=== PATIENT | male | born 1945 | race African-American/Black ===

== ENCOUNTER 2017-12-20 10:35 | Inpatient (IN) | payer MEDICARE, MEDICAID ==
[~2017-12-20] VITALS: Ht 177.8 cm; Wt 204.1 kg
[2017-12-20 10:40] VITALS: BP 159/86
--- NOTE | 2017-12-20 11:36 | Emergency Room Report ---
History of Present Illness General Chief Complaint: General Complaint Source: Patient, PMD Present Illness HPI 72-year-old male with history of hypertension, diabetes, CHF, sent by Dr. Maco Diane from the [facility] [place] for unknown reasons. Patient denies any pain complaints, any shortness of breath, any fever, the only thing he complains of he has been having some loose stools lately. He denies any diarrheas. He denies suicidal, homicidal ideations, denies hallucinations. He himself is not sure why he was sent to the ER. I will try to contact Dr. Diane to try and figure out why the patient is sent here. In the interim I will order basic labs, ekg, cxr. Patient reported to triage that he may be having leg pain, but when asked specifically he reports not having leg pain, he also denies that his legs are more swollen than usual. He was sent for persistent diarrhea according to Dr. Diane. Allergies: Coded Allergies: No Known Allergies (Unverified , 12/20/17) Patient History Past Medical History: see triage record Reviewed Nursing Documentation: PMH: Agreed; PSxH: Agreed Nursing Documentation-PMH Past Medical History: No History, Except For Hx Cardiac Problems: Yes - chf Hx Hypertension: Yes Hx Diabetes: Yes Review of Systems All Other Systems: negative except mentioned in HPI Physical Exam Vital Signs Date Time Temp Pulse Resp B/P (MAP) Pulse Ox O2 Delivery O2 Flow Rate FiO2 12/20/17 10:42 98.0 94 24 180/83 96 Room Air 98.1 Sp02 EP Interpretation: reviewed, normal General Appearance: no apparent distress, alert, non-toxic Head: normocephalic Eyes: bilateral eye normal inspection, bilateral eye PERRL, bilateral eye EOMI ENT: normal ENT inspection, hearing grossly normal, normal pharynx, no angioedema, normal voice, moist mucus membranes Neck: normal inspection, full range of motion, supple, supple/symm/no masses Respiratory: chest non-tender, lungs clear, normal breath sounds, chest symmetrical, palpation of chest normal Cardiovascular #1: normal peripheral pulses, regular rate, rhythm, edema - 1+ bilateral lower extremity edema, no erythema, no warmth, no tenderness Cardiovascular #2: 2+ radial (R), 2+ radial (L) Gastrointestinal: normal inspection, non tender, soft, no mass, no guarding, no rebound, other - Multiple scars, well-healed, overweight Rectal: deferred Genitourinary: normal inspection, no CVA tenderness Musculoskeletal: back normal, gait/station normal, normal range of motion, non- tender, no calf tenderness Neurologic: alert, responsive, physician practice administrator III-XII nml as tested, motor strength/tone normal, sensory intact, speech normal Psychiatric: judgement/insight normal, memory normal, mood/affect normal, no suicidal/homicidal ideation Skin: normal color, no rash, warm/dry, normal turgor Lymphatic: no adenopathy Medical Decision Making Diagnostic Impression: Primary Impression: Diarrhea ER Course stool cultures ordered, patient afebrile with no pain, no recent abx, but will send stool studies. I spoke with Dr. Maco Diane, will admit to [facility] surgery for profuse diarrhea. EKG Diagnostic Results EKG Time: 11:47 EP Interpretation: no st-t segment changes, TWI in R precordium Rate: normal Rhythm: NSR ST Segments: no acute changes Rhythm Strip Diag. Results Rhythm Strip Time: 12:28 EP Interpretation: yes Rate: 85 Rhythm: NSR, no PVC's, no ectopy Chest X-Ray Diagnostic Results Chest X-Ray Diagnostic Results : Chest X-Ray Ordered: Yes # of Views/Limited/Complete: 1 View Indication: Other EP Interpretation: Yes Interpretation: no consolidation, no effusion, no pneumothorax, no acute cardiopulmonary disease, other - abdominal pannus overlying inferior portion of cxr film, but no lung field opacity Impression: No acute disease Electronically Signed by: Cuong Vu MD Last Vital Signs Date Time Temp Pulse Resp B/P (MAP) Pulse Ox O2 Delivery O2 Flow Rate FiO2 12/20/17 10:42 98.0 94 24 180/83 96 Room Air 98.1 Disposition: ADMITTED INPATIENT Referrals: Maco Diane DO (PCP) CUONG VU M.D Dec 20, 2017 11:36
--- NOTE | 2017-12-20 12:55 | Diagnostic Imaging Report ---
Indication: Shortness of breath Technique: One view of the chest Comparison: none Findings: Body habitus limits evaluation. The lungs and pleural spaces are clear. The heart is enlarged. There is surgical hardware in the cervical spine Impression: No definite acute process Borderline cardiomegaly
[2017-12-20 13:15] LABS: EOSINOPHILS % (AUTO) 2.4 % (0.0-3.0); HEMATOCRIT 41.3 % (42.0-52.0); HEMOGLOBIN 12.6 G/DL (14.2-18.0); LYMPHOCYTES % (AUTO) 18.6 % (20.0-45.0); MEAN CORPUSCULAR VOLUME 85 FL (80-99); MONOCYTES % (AUTO) 5.9 % (1.0-10.0); NEUTROPHILS % (AUTO) 72.1 % (45.0-75.0); PLATELET COUNT 198 K/UL (150-450); RED BLOOD COUNT 4.88 M/UL (4.70-6.10); RED CELL DISTRIBUTION WIDTH 13.6 % (11.6-14.8); WHITE BLOOD COUNT 6.6 K/UL (4.8-10.8)
[2017-12-20 13:35] LABS: ANION GAP 9 mmol/L (5-15); BLOOD UREA NITROGEN 10 mg/dL (7-18); CALCIUM 9.1 MG/DL (8.5-10.1); CARBON DIOXIDE 27 MMOL/L (21-32); CHLORIDE 102 MMOL/L (98-107); CREATININE 1.1 MG/DL (0.55-1.30); POTASSIUM 5.2 MMOL/L (3.5-5.1)
[2017-12-20 13:46] LABS: ALANINE AMINOTRANSFERASE 27 U/L (12-78); ALBUMIN 3.4 G/DL (3.4-5.0); ALBUMIN/GLOBULIN RATIO 0.7 (1.0-2.7); ALKALINE PHOSPHATASE 111 U/L (46-116); ASPARTATE AMINO TRANSFERASE 40 U/L (15-37); BILIRUBIN,TOTAL 0.5 MG/DL (0.2-1.0)
[2017-12-20 13:50] LABS: SODIUM 138 MMOL/L (136-145)
[2017-12-20] MEDS ORDERED: UNOBMED (13:58)
[2017-12-20] MEDS ORDERED: Morphine Sulfate 2mg/ml Inj(IV/IM USE ONLY) IVP PRN (14:00)
[2017-12-20] MEDS ORDERED: Mylanta II UD 30ml ORAL PRN (14:00)
[2017-12-20] MEDS ORDERED: LORazepam Inj 2mg/ml 1ml IV PRN (14:00)
[2017-12-20 15:01] VITALS: BP 160/70
--- NOTE | 2017-12-20 15:57 | GI Initial Consult Note ---
History of Present Illness General Date patient seen: Dec 20, 2017 Reason for Hospitalization: General Complaint Referring physician: HILARIO BAJWA Reason for Consultation: DIARRHEA Present Illness HPI 72-year-old male with history of hypertension, diabetes, CHF, sent by Dr. Hilario Bajaw from the [facility] ([facility] for unknown reasons. Patient denies any pain complaints, any shortness of breath, any fever, the only thing he complains of he has been having some loose stools lately. He denies any diarrheas. He denies suicidal, homicidal ideations, denies hallucinations. He himself is not sure why he was sent to the ER. I will try to contact Dr. Bajwa to try and figure out why the patient is sent here. In the interim I will order basic labs, ekg, cxr. Patient reported to triage that he may be having leg pain, but when asked specifically he reports not having leg pain, he also denies that his legs are more swollen than usual. He was sent for persistent diarrhea according to Dr. Bajwa. GI consulted for persistent diarrhea. Pt was seen in ED, morbid obesity awake A &Ox4 NAD with no active s/sx of N/V/D. Reports of diarrhea, however the patient stated he felt constipated and cited his last BM was yesterday and small. Denies any abdominal pain. Abdomen is firm, non distended, non tender. No noted pitting edema BLE. Stated he had a colonoscopy over 10 years ago. Presents today with mild anemia, hyperkalemia and elevated glucose levels. Home Meds Reported Medications Unable to Obtain Medications (UNABLE TO OBTAIN MEDS) 1 Ea Ea 12/20/17 Med list reviewed/reconciled: Yes Allergies: Coded Allergies: No Known Allergies (Unverified , 12/20/17) Patient History History Provided By: Patient, Medical Record PMH Narrative Past Medical History: see triage record Reviewed Nursing Documentation: PMH: Agreed; PSxH: Agreed Nursing Documentation-PMH Past Medical History: No History, Except For Hx Cardiac Problems: Yes - chf Hx Hypertension: Yes Hx Diabetes: Yes Social History: Denies: smoking, alcohol use, drug use, other Review of Systems All Other Systems: negative except mentioned in HPI Physical Exam Vital Signs Date Time Temp Pulse Resp B/P (MAP) Pulse Ox O2 Delivery O2 Flow Rate FiO2 12/20/17 10:40 98.3 81 23 159/86 97 Room Air 98.3 Sp02 EP Interpretation: reviewed, normal Labs Laboratory Tests Test 12/20/17 11:32 White Blood Count 6.6 K/UL (4.8-10.8) Red Blood Count 4.88 M/UL (4.70-6.10) Hemoglobin 12.6 G/DL (14.2-18.0) L Hematocrit 41.3 % (42.0-52.0) L Mean Corpuscular Volume 85 FL (80-99) Mean Corpuscular Hemoglobin 25.9 PG (27.0-31.0) L Mean Corpuscular Hemoglobin Concent 30.6 G/DL (32.0-36.0) L Red Cell Distribution Width 13.6 % (11.6-14.8) Platelet Count 198 K/UL (150-450) Mean Platelet Volume 7.1 FL (6.5-10.1) Neutrophils (%) (Auto) 72.1 % (45.0-75.0) Lymphocytes (%) (Auto) 18.6 % (20.0-45.0) L Monocytes (%) (Auto) 5.9 % (1.0-10.0) Eosinophils (%) (Auto) 2.4 % (0.0-3.0) Basophils (%) (Auto) 1.0 % (0.0-2.0) Sodium Level 138 MMOL/L (136-145) Potassium Level 5.2 MMOL/L (3.5-5.1) H Chloride Level 102 MMOL/L (98-107) Carbon Dioxide Level 27 MMOL/L (21-32) Anion Gap 9 mmol/L (5-15) Blood Urea Nitrogen 10 mg/dL (7-18) Creatinine 1.1 MG/DL (0.55-1.30) Estimat Glomerular Filtration Rate > 60 mL/min (>60) Glucose Level 301 MG/DL (74-106) H Calcium Level 9.1 MG/DL (8.5-10.1) Total Bilirubin 0.5 MG/DL (0.2-1.0) Aspartate Amino Transf (AST/SGOT) 40 U/L (15-37) H Alanine Aminotransferase (ALT/SGPT) 27 U/L (12-78) Alkaline Phosphatase 111 U/L (46-116) Troponin I 0.037 ng/mL (0.000-0.056) Pro-B-Type Natriuretic Peptide 278 pg/mL (0-125) H Total Protein 8.0 G/DL (6.4-8.2) Albumin 3.4 G/DL (3.4-5.0) Globulin 4.6 g/dL Albumin/Globulin Ratio 0.7 (1.0-2.7) L General Appearance: well appearing, no apparent distress, alert, obese Head: normocephalic EENT: PERRL/EOMI, normal ENT inspection Neck: supple Respiratory: normal breath sounds, no respiratory distress Cardiovascular: normal rate Gastrointestinal: normal inspection, non tender, soft, normal bowel sounds, non -distended Rectal: deferred Genitourinary: deferred Musculoskeletal: normal inspection, back normal Neurologic: normal inspection, alert, oriented x3, responsive Psychiatric: normal inspection, judgement/insight normal, memory normal Skin: normal inspection, normal color, no rash, warm/dry, palpation normal, well hydrated Lymphatic: normal inspection, no adenopathy Current Medications Current Medications Medications (Trade) Dose Ordered Sig/Summer Route PRN Reason Start Time Stop Time Status Last Admin Dose Admin Acetaminophen (Tylenol) 650 mg Q4H PRN ORAL fever 12/20/17 14:00 01/19/18 13:59 Al Hydroxide/Mg Hydroxide (Mylanta II) 30 ml Q6H PRN ORAL dyspepsia 12/20/17 14:00 01/19/18 13:59 Dextrose (Dextrose 50%) STAT PRN IV Hypoglycemia 12/20/17 13:45 01/19/18 13:44 Dextrose (Dextrose 50%) 25 ml STAT PRN IV Hypoglycemia 12/20/17 14:00 01/19/18 13:59 Heparin Sodium (Porcine) (Heparin 5000 units/ml) 5,000 units EVERY 12 HOURS SUBQ 12/20/17 21:00 01/19/18 20:59 Insulin Aspart (NovoLOG) BEFORE MEALS AND HS SUBQ 12/20/17 16:30 01/19/18 16:29 Lorazepam (Ativan 2mg/ml 1ml) 0.5 mg Q4H PRN IV For Anxiety 12/20/17 14:00 12/27/17 13:59 Morphine Sulfate (Morphine Sulfate) 1 mg Q4H PRN IVP For Pain 12/20/17 14:00 12/27/17 13:59 Ondansetron HCl (Zofran) 4 mg Q6H PRN IVP Nausea & Vomiting 12/20/17 14:00 01/19/18 13:59 Polyethylene Glycol (Miralax) 17 gm HSPRN PRN ORAL Constipation 12/20/17 21:00 01/19/18 20:59 Zolpidem Tartrate (Ambien) 5 mg HSPRN PRN ORAL Insomnia 12/20/17 21:00 12/27/17 20:59 GI: Plan Problems: (1) Constipation (2) Anemia (3) Electrolyte imbalance (4) Morbidly obese (5) Diarrhea Plan send for stool studies, cdiff >> if no diarrhea by tomorrow, will start bowel regime ADA diet anemia work up OB stool r/o GI bleed monitor H&H, prn transfusions bowel regime ppi fu labs hydralazine prn Discussed with Dr. Vanegas. Thank you for this patient referral, we will follow. The patient was seen and examined at bedside and all new and available data was reviewed in the patients chart. I agree with the above findings, impression and plan. (Patient seen earlier today. Signature stamp does not reflect patient encounter time.). - MD Majo Ponce,[facility] STORE CUSTODIAN Dec 20, 2017 15:57
[2017-12-20] MEDS ORDERED: HydrALAZINE 25mg tab ORAL PRN (16:00)
[2017-12-20] MEDS: NovoLOG Insulin Flexpen SUBQ SCH ×2 (16:52→20:45)
[2017-12-20 20:00] VITALS: BP 127/60
[2017-12-20] MEDS: Heparin 5000 units/ml inj SUBQ SCH (20:45)
[2017-12-20] MEDS ORDERED: Zolpidem 5mg tab ORAL PRN (21:00)
[2017-12-20] MEDS ORDERED: Miralax 17gm pkt ORAL PRN (21:00)
--- NOTE | 2017-12-20 21:30 | History and Physical Report ---
DATE OF ADMISSION: 12/20/2017 CHIEF COMPLAINT: Diarrhea x3 weeks, weakness, and lethargy. BRIEF HISTORY: This is a 72-year-old male, who lives in [facility] complains of diarrhea for three weeks, getting worse, came to the [place] ER, and diagnosed with the above. Currently, calm in the ER being admitted to medical floor. PAST MEDICAL HISTORY: Includes chronic obstructive pulmonary disease, congestive heart failure, hypertension, diabetes, edema, lower extremity weakness, and morbid obesity. PAST SURGERY HISTORY: Abdominal surgery. MEDICATIONS: We will obtain this shortly. ALLERGIES: Denies. SOCIAL HISTORY: No smoking. No alcohol. No intravenous drug abuse. FAMILY HISTORY: Noncontributory. PHYSICAL EXAMINATION: GENERAL: Calm in bed, oriented x3, and in no acute distress. VITAL SIGNS: Temperature is 98 degrees, pulse 94, respirations 24, and blood pressure 180/83. CARDIOVASCULAR: No murmurs. LUNGS: Distant and clear. ABDOMEN: Bowel sounds positive. Nontender. Nondistended. EXTREMITIES: No cyanosis or clubbing. A 1+ edema. NEUROLOGIC: The patient moves all extremities, slightly weak. LABORATORY DATA: Labs, at this time, show hemoglobin 12.6, otherwise CBC is normal. BMP is pending. ASSESSMENT: 1. Diarrhea. 2. Edema. 3. Anemia. 4. Hypertension. 5. Diabetes. 6. Congestive heart failure. 7. Chronic obstructive pulmonary disease. PLAN: 1. O2 and pulmonary treatment as needed. 2. Blood pressure and blood sugar control. 3. Dietary followup. 4. CBC and BMP in the morning. 5. Resume home medications. 6. We will continue to follow this patient. 7. Dr. Vanegas, Dr. Swanson, and Dr. Graves to consult. Maco Diane D.O. DR: BRUCE JOB#: [id number] CC:
--- NOTE | 2017-12-20 22:15 | History and Physical Report ---
DATE OF ADMISSION: 12/20/2017 TIME: 1 p.m. CHIEF COMPLAINT: Diarrhea x3 weeks, weakness, and lethargy. BRIEF HISTORY: This is a 72-year-old male, who lives [facility], complains of diarrhea for three weeks, getting worse, came to the [place] ER, and diagnosed with the above. Currently, calm in the ER being admitted to medical floor. PAST MEDICAL HISTORY: Includes chronic obstructive pulmonary disease, congestive heart failure, hypertension, diabetes, edema, lower extremity weakness, and morbid obesity. PAST SURGERY HISTORY: Abdominal surgery. MEDICATIONS: We will obtain this shortly. ALLERGIES: Denies. SOCIAL HISTORY: No smoking. No alcohol. No intravenous drug abuse. FAMILY HISTORY: Noncontributory. PHYSICAL EXAMINATION: GENERAL: Calm in bed, oriented x3, and in no acute distress. VITAL SIGNS: Temperature is 98 degrees, pulse 94, respirations 24, and blood pressure 180/83. CARDIOVASCULAR: No murmurs. LUNGS: Distant and clear. ABDOMEN: Bowel sounds positive. Nontender. Nondistended. EXTREMITIES: No cyanosis or clubbing. A 1+ edema. NEUROLOGIC: The patient moves all extremities, slightly weak. LABORATORY DATA: Labs, at this time, show hemoglobin 12.6, otherwise CBC is normal. BMP is pending. ASSESSMENT: 1. Diarrhea. 2. Edema. 3. Anemia. 4. Hypertension. 5. Diabetes. 6. Congestive heart failure. 7. Chronic obstructive pulmonary disease. PLAN: 1. O2 and pulmonary treatment as needed. 2. Blood pressure and blood sugar control. 3. Dietary followup. 4. CBC and BMP in the morning. 5. Resume home medications. 6. We will continue to follow this patient. 7. Dr. Vanegas, Dr. Swanson, and Dr. Graves to consult. Maco Diane D.O. DR: BRUCE JOB#: [id number] CC:
[2017-12-21] VITALS: BP 103/61
[2017-12-21 04:00] VITALS: BP 131/78
[2017-12-21] MEDS: NovoLOG Insulin Flexpen SUBQ SCH ×4 (06:17→20:52)
[2017-12-21 06:42] LABS: BASOPHILS % (AUTO) 0.6 % (0.0-2.0); EOSINOPHILS % (AUTO) 3.7 % (0.0-3.0); HEMATOCRIT 34.7 % (42.0-52.0); HEMOGLOBIN 10.7 G/DL (14.2-18.0); LYMPHOCYTES % (AUTO) 24.2 % (20.0-45.0); MEAN CORPUSCULAR VOLUME 85 FL (80-99); MONOCYTES % (AUTO) 8.3 % (1.0-10.0); NEUTROPHILS % (AUTO) 63.1 % (45.0-75.0); PLATELET COUNT 182 K/UL (150-450); RED BLOOD COUNT 4.07 M/UL (4.70-6.10); RED CELL DISTRIBUTION WIDTH 13.9 % (11.6-14.8); WHITE BLOOD COUNT 5.8 K/UL (4.8-10.8)
[2017-12-21 07:01] LABS: % IRON SATURATION 18 % (15-50); IRON 37 ug/dL (50-175); TOTAL IRON BINDING CAPACITY 208 ug/dL (250-450)
[2017-12-21 07:12] LABS: ALANINE AMINOTRANSFERASE 21 U/L (12-78); ALBUMIN 2.9 G/DL (3.4-5.0); ALBUMIN/GLOBULIN RATIO 0.7 (1.0-2.7); ALKALINE PHOSPHATASE 101 U/L (46-116); ANION GAP 9 mmol/L (5-15); ASPARTATE AMINO TRANSFERASE 17 U/L (15-37); BILIRUBIN,TOTAL 0.4 MG/DL (0.2-1.0); BLOOD UREA NITROGEN 12 mg/dL (7-18); CALCIUM 8.9 MG/DL (8.5-10.1); CARBON DIOXIDE 27 MMOL/L (21-32); CHLORIDE 105 MMOL/L (98-107); CHOLESTEROL 106 MG/DL (< 200); CREATININE 1.1 MG/DL (0.55-1.30); FERRITIN 33 NG/ML (8-388); HDL CHOLESTEROL 45 MG/DL (40-60); POTASSIUM 4.2 MMOL/L (3.5-5.1); SODIUM 140 MMOL/L (136-145); TRIGLYCERIDES 83 MG/DL (30-150)
[2017-12-21 08:00] VITALS: BP 148/76
[2017-12-21] MEDS: Heparin 5000 units/ml inj SUBQ SCH ×2 (09:03→20:51)
--- NOTE | 2017-12-21 10:52 | General Progress Note ---
Assessment/Plan Problem List: (1) Diabetes ICD Codes: E11.9 - Type 2 diabetes mellitus without complications SNOMED: 28255700 (2) COPD (chronic obstructive pulmonary disease) ICD Codes: J44.9 - Chronic obstructive pulmonary disease, unspecified SNOMED: 92032383 (3) CHF (congestive heart failure) ICD Codes: I50.9 - Heart failure, unspecified SNOMED: 54014607 (4) HTN (hypertension) ICD Codes: I10 - Essential (primary) hypertension SNOMED: 77045317 (5) Anemia ICD Codes: D64.9 - Anemia, unspecified SNOMED: 383729896 (6) Morbidly obese ICD Codes: E66.01 - Morbid (severe) obesity due to excess calories SNOMED: 015540501 (7) Diarrhea ICD Codes: R19.7 - Diarrhea, unspecified SNOMED: 71992575 Status: unchanged Assessment/Plan ot pt diet o2 pulm tx gi f/u cbc bmp am dc plan Subjective Constitutional: Reports: weakness Allergies: Coded Allergies: No Known Allergies (Unverified , 12/20/17) All Systems: reviewed and negative except above Subjective sl sob in bed Objective Last 24 Hour Vital Signs Date Time Temp Pulse Resp B/P (MAP) Pulse Ox O2 Delivery O2 Flow Rate FiO2 12/21/17 09:00 Room Air 12/21/17 08:00 97.8 96 20 148/76 (100) 98 97.8 12/21/17 04:00 97.3 81 18 131/78 (95) 96 97.3 12/21/17 00:59 96.7 12/21/17 00:29 96.7 12/21/17 00:00 98.3 82 17 103/61 (75) 95 98.3 12/20/17 21:23 Room Air 12/20/17 20:00 96.7 92 17 127/60 (82) 96 96.7 12/20/17 17:27 Room Air 12/20/17 16:26 177/94 12/20/17 15:40 98.8 24 160/70 100 Room Air 98.8 12/20/17 15:01 98.8 24 160/70 100 Room Air 98.8 Intake and Output 12/20/17 12/21/17 19:00 07:00 Intake Total 440 ml Balance 440 ml Intake Oral 440 ml # Voids 1 4 Laboratory Tests 7/26/18 11:32: White Blood Count 6.6, Red Blood Count 4.88, Hemoglobin 12.6L, Hematocrit 41.3L , Mean Corpuscular Volume 85, Mean Corpuscular Hemoglobin 25.9L, Mean Corpuscular Hemoglobin Concent 30.6L, Red Cell Distribution Width 13.6, Platelet Count 198, Mean Platelet Volume 7.1, Neutrophils (%) (Auto) 72.1, Lymphocytes (%) (Auto) 18.6L, Monocytes (%) (Auto) 5.9, Eosinophils (%) (Auto) 2.4, Basophils (%) (Auto) 1.0, Sodium Level 138, Potassium Level 5.2H, Chloride Level 102, Carbon Dioxide Level 27, Anion Gap 9, Blood Urea Nitrogen 10, Creatinine 1.1, Estimat Glomerular Filtration Rate > 60, Glucose Level 301H, Calcium Level 9.1, Total Bilirubin 0.5, Aspartate Amino Transf (AST/SGOT) 40H, Alanine Aminotransferase (ALT/SGPT) 27, Alkaline Phosphatase 111, Troponin I 0.037, Pro-B-Type Natriuretic Peptide 278H, Total Protein 8.0, Albumin 3.4, Globulin 4.6, Albumin/Globulin Ratio 0.7L 12/21/17 05:10: White Blood Count 5.8, Red Blood Count 4.07L, Hemoglobin 10.7L, Hematocrit 34.7L , Mean Corpuscular Volume 85, Mean Corpuscular Hemoglobin 26.3L, Mean Corpuscular Hemoglobin Concent 30.8L, Red Cell Distribution Width 13.9, Platelet Count 182, Mean Platelet Volume 7.3, Neutrophils (%) (Auto) 63.1, Lymphocytes (%) (Auto) 24.2, Monocytes (%) (Auto) 8.3, Eosinophils (%) (Auto) 3.7H, Basophils (%) (Auto) 0.6, Sodium Level 140, Potassium Level 4.2, Chloride Level 105, Carbon Dioxide Level 27, Anion Gap 9, Blood Urea Nitrogen 12, Creatinine 1.1, Estimat Glomerular Filtration Rate > 60, Glucose Level 197#H, Calcium Level 8.9, Total Bilirubin 0.4, Aspartate Amino Transf (AST/SGOT) 17, Alanine Aminotransferase (ALT/SGPT) 21, Alkaline Phosphatase 101, Total Protein 6.9, Albumin 2.9L, Globulin 4.0, Albumin/Globulin Ratio 0.7L, Reticulocyte Count 1.1, Prothrombin Time 10.7, Prothromb Time International Ratio 1.0, Activated Partial Thromboplast Time 26, Iron Level 37L, Total Iron Binding Capacity 208L, Percent Iron Saturation 18, Unsaturated Iron Binding 171, Ferritin 33, Triglycerides Level 83, Cholesterol Level 106, LDL Cholesterol 63, HDL Cholesterol 45, Cholesterol/HDL Ratio 2.4L, Carcinoembryonic Antigen [ Pending], Vitamin B12 Level 127L, Folate 13.3, Thyroid Stimulating Hormone (TSH ) 2.022, Free Thyroxine 1.02 Height (Feet): 5 Height (Inches): 10.00 Weight (Pounds): 450 General Appearance: lethargic EENT: normal ENT inspection Neck: normal alignment Cardiovascular: normal peripheral pulses, normal rate, regular rhythm Respiratory/Chest: chest wall non-tender, decreased breath sounds Abdomen: normal bowel sounds, non tender Extremities: normal inspection Edema: 1+ Arm (L), 1+ Arm (R), 1+ Leg (L), 1+ Leg (R), 1+ Pedal (L), 1+ Pedal ( R), 1+ Generalized Edema: trace edema Neurologic: responsive, motor weakness Skin: normal pigmentation, warm/dry Maco Diane DO Dec 21, 2017 10:52
[2017-12-21 12:00] VITALS: BP 153/75
--- NOTE | 2017-12-21 12:24 | Cardiology Report ---
APPROVED REPORT EKG Measurement Heart [id number] Sinus rhythm with 1st degree AV block Possible Left atrial enlargement Right bundle branch block Septal infarct, age undetermined Abnormal ECG
--- NOTE | 2017-12-21 14:08 | Consultation ---
History of Present Illness General Date patient seen: Dec 21, 2017 Chief Complaint: General Complaint Referring physician: HILARIO BAJWA Reason for Consultation: DEJA Present Illness HPI 72-year-old male with history of hypertension, diabetes, CHF, morbid obesity, DEJA presented to ER with loose stools lately. He is also having leg pain. He is admitted to medical floor for further management. Allergies: Coded Allergies: No Known Allergies (Unverified , 12/20/17) Medication History Miscellaneous Medications Unable to Obtain Medications (Unable To Obtain Meds), (Reported) Patient History Healthcare decision maker Resuscitation status Full Code Advanced Directive on File No Past Medical/Surgical History Past Medical/Surgical History: (1) HTN (hypertension) (2) CHF (congestive heart failure) (3) Diabetes (4) COPD (chronic obstructive pulmonary disease) Review of Systems All Other Systems: negative except mentioned in HPI Physical Exam General Appearance: morbidly obese Lines, tubes and drains: peripheral HEENT: normocephalic, atraumatic Neck: non-tender, supple Respiratory/Chest: chest wall non-tender, normal breath sounds Cardiovascular/Chest: normal peripheral pulses Abdomen: normal bowel sounds, no organomegaly Genitourinary/Rectal: normal rectal exam Last 24 Hour Vital Signs Date Time Temp Pulse Resp B/P (MAP) Pulse Ox O2 Delivery O2 Flow Rate FiO2 12/21/17 12:00 98.2 82 20 153/75 (101) 97 98.2 12/21/17 09:00 Room Air 12/21/17 08:00 97.8 96 20 148/76 (100) 98 97.8 12/21/17 04:00 97.3 81 18 131/78 (95) 96 97.3 12/21/17 00:59 96.7 12/21/17 00:29 96.7 12/21/17 00:00 98.3 82 17 103/61 (75) 95 98.3 12/20/17 21:23 Room Air 12/20/17 20:00 96.7 92 17 127/60 (82) 96 96.7 12/20/17 17:27 Room Air 12/20/17 16:26 177/94 12/20/17 15:40 98.8 24 160/70 100 Room Air 98.8 12/20/17 15:01 98.8 24 160/70 100 Room Air 98.8 Intake and Output 7/26/18 7/27/18 19:00 07:00 Intake Total 440 ml Balance 440 ml Intake Oral 440 ml # Voids 1 4 Laboratory Tests Test 12/21/17 05:10 White Blood Count 5.8 K/UL (4.8-10.8) Red Blood Count 4.07 M/UL (4.70-6.10) L Hemoglobin 10.7 G/DL (14.2-18.0) L Hematocrit 34.7 % (42.0-52.0) L Mean Corpuscular Volume 85 FL (80-99) Mean Corpuscular Hemoglobin 26.3 PG (27.0-31.0) L Mean Corpuscular Hemoglobin Concent 30.8 G/DL (32.0-36.0) L Red Cell Distribution Width 13.9 % (11.6-14.8) Platelet Count 182 K/UL (150-450) Mean Platelet Volume 7.3 FL (6.5-10.1) Neutrophils (%) (Auto) 63.1 % (45.0-75.0) Lymphocytes (%) (Auto) 24.2 % (20.0-45.0) Monocytes (%) (Auto) 8.3 % (1.0-10.0) Eosinophils (%) (Auto) 3.7 % (0.0-3.0) H Basophils (%) (Auto) 0.6 % (0.0-2.0) Reticulocyte Count 1.1 % (0.0-2.0) Prothrombin Time 10.7 SEC (9.30-11.50) Prothromb Time International Ratio 1.0 (0.9-1.1) Activated Partial Thromboplast Time 26 SEC (23-33) Sodium Level 140 MMOL/L (136-145) Potassium Level 4.2 MMOL/L (3.5-5.1) Chloride Level 105 MMOL/L (98-107) Carbon Dioxide Level 27 MMOL/L (21-32) Anion Gap 9 mmol/L (5-15) Blood Urea Nitrogen 12 mg/dL (7-18) Creatinine 1.1 MG/DL (0.55-1.30) Estimat Glomerular Filtration Rate > 60 mL/min (>60) Glucose Level 197 MG/DL (74-106) #H Calcium Level 8.9 MG/DL (8.5-10.1) Iron Level 37 ug/dL (50-175) L Total Iron Binding Capacity 208 ug/dL (250-450) L Percent Iron Saturation 18 % (15-50) Unsaturated Iron Binding 171 ug/dL (112-346) Ferritin 33 NG/ML (8-388) Total Bilirubin 0.4 MG/DL (0.2-1.0) Aspartate Amino Transf (AST/SGOT) 17 U/L (15-37) Alanine Aminotransferase (ALT/SGPT) 21 U/L (12-78) Alkaline Phosphatase 101 U/L (46-116) Total Protein 6.9 G/DL (6.4-8.2) Albumin 2.9 G/DL (3.4-5.0) L Globulin 4.0 g/dL Albumin/Globulin Ratio 0.7 (1.0-2.7) L Triglycerides Level 83 MG/DL (30-150) Cholesterol Level 106 MG/DL (< 200) LDL Cholesterol 63 mg/dL (<100) HDL Cholesterol 45 MG/DL (40-60) Cholesterol/HDL Ratio 2.4 (3.3-4.4) L Carcinoembryonic Antigen Pending Vitamin B12 Level 127 PG/ML (193-986) L Folate 13.3 NG/ML (8.6-58.9) Thyroid Stimulating Hormone (TSH) 2.022 uiU/mL (0.358-3.740) Free Thyroxine 1.02 NG/DL (0.76-1.46) Microbiology Date/Time Source Procedure Growth Status 12/20/17 15:30 Rectum - Preliminary Resulted Height (Feet): 5 Height (Inches): 10.00 Weight (Pounds): 450 Medications Current Medications Medications (Trade) Dose Ordered Sig/Summer Route PRN Reason Start Time Stop Time Status Last Admin Dose Admin Acetaminophen (Tylenol) 650 mg Q4H PRN ORAL fever 12/20/17 14:00 01/19/18 13:59 Al Hydroxide/Mg Hydroxide (Mylanta II) 30 ml Q6H PRN ORAL dyspepsia 12/20/17 14:00 01/19/18 13:59 Clonidine HCl (Catapres Tab) 0.1 mg Q6H PRN ORAL For High Blood Pressure 12/20/17 16:00 01/19/18 15:59 7/26/18 16:26 Dextrose (Dextrose 50%) STAT PRN IV Hypoglycemia 12/20/17 13:45 01/19/18 13:44 Dextrose (Dextrose 50%) 25 ml STAT PRN IV Hypoglycemia 12/20/17 14:00 01/19/18 13:59 Heparin Sodium (Porcine) (Heparin 5000 units/ml) 5,000 units EVERY 12 HOURS SUBQ 12/20/17 21:00 01/19/18 20:59 12/21/17 09:03 Insulin Aspart (NovoLOG) BEFORE MEALS AND HS SUBQ 12/20/17 16:30 01/19/18 16:29 12/21/17 11:13 Lorazepam (Ativan 2mg/ml 1ml) 0.5 mg Q4H PRN IV For Anxiety 12/20/17 14:00 12/27/17 13:59 Morphine Sulfate (Morphine Sulfate) 1 mg Q4H PRN IVP For Pain 12/20/17 14:00 12/27/17 13:59 12/21/17 00:29 Ondansetron HCl (Zofran) 4 mg Q6H PRN IVP Nausea & Vomiting 12/20/17 14:00 01/19/18 13:59 Polyethylene Glycol (Miralax) 17 gm HSPRN PRN ORAL Constipation 12/20/17 21:00 01/19/18 20:59 Zolpidem Tartrate (Ambien) 5 mg HSPRN PRN ORAL Insomnia 12/20/17 21:00 12/27/17 20:59 Assessment/Plan Problem List: (1) COPD (chronic obstructive pulmonary disease) ICD Codes: J44.9 - Chronic obstructive pulmonary disease, unspecified SNOMED: 80852704 (2) Diarrhea ICD Codes: R19.7 - Diarrhea, unspecified SNOMED: 45227051 (3) HTN (hypertension) ICD Codes: I10 - Essential (primary) hypertension SNOMED: 13104974 (4) Diabetes ICD Codes: E11.9 - Type 2 diabetes mellitus without complications SNOMED: 24502959 (5) Morbidly obese ICD Codes: E66.01 - Morbid (severe) obesity due to excess calories SNOMED: 066456684 Assessment/Plan respiratory treatment check electrolytes titrate fio2 to sat of 92 GI evaluation Stool studies dvt prophylaxis. Jonatan Swanson MD Dec 21, 2017 14:08
--- NOTE | 2017-12-21 15:38 | GI Progress Note ---
Assessment/Plan Problems: (1) Morbidly obese ICD Codes: E66.01 - Morbid (severe) obesity due to excess calories SNOMED: 400697392 (2) Electrolyte imbalance ICD Codes: E87.8 - Other disorders of electrolyte and fluid balance, not elsewhere classified SNOMED: 903078960 (3) Diarrhea ICD Codes: R19.7 - Diarrhea, unspecified SNOMED: 02296712 (4) Anemia ICD Codes: D64.9 - Anemia, unspecified SNOMED: 332356366 (5) Constipation ICD Codes: K59.00 - Constipation, unspecified SNOMED: 31457023 Status: stable Status Narrative Discussed with Dr. Vanegas. Assessment/Plan had formed stool >> start bowel regime OB stool pending ADA diet anemia work up monitor H&H, prn transfusions bowel regime ppi fu labs, kub outpatient GI procedures The patient was seen and examined at bedside and all new and available data was reviewed in the patients chart. I agree with the above findings, impression and plan. (Patient seen earlier today. Signature stamp does not reflect patient encounter time.). - Pierce Vanegas MD Subjective Subjective had formed BM today Objective Last 24 Hour Vital Signs Date Time Temp Pulse Resp B/P (MAP) Pulse Ox O2 Delivery O2 Flow Rate FiO2 12/21/17 12:00 98.2 82 20 153/75 (101) 97 98.2 12/21/17 09:00 Room Air 12/21/17 08:00 97.8 96 20 148/76 (100) 98 97.8 12/21/17 04:00 97.3 81 18 131/78 (95) 96 97.3 12/21/17 00:59 96.7 12/21/17 00:29 96.7 12/21/17 00:00 98.3 82 17 103/61 (75) 95 98.3 12/20/17 21:23 Room Air 12/20/17 20:00 96.7 92 17 127/60 (82) 96 96.7 12/20/17 17:27 Room Air 12/20/17 16:26 177/94 12/20/17 15:40 98.8 24 160/70 100 Room Air 98.8 Intake and Output 12/20/17 12/21/17 19:00 07:00 Intake Total 440 ml Balance 440 ml Intake Oral 440 ml # Voids 1 4 Laboratory Tests Test 12/21/17 05:10 12/21/17 14:30 White Blood Count 5.8 K/UL (4.8-10.8) Red Blood Count 4.07 M/UL (4.70-6.10) L Hemoglobin 10.7 G/DL (14.2-18.0) L Hematocrit 34.7 % (42.0-52.0) L Mean Corpuscular Volume 85 FL (80-99) Mean Corpuscular Hemoglobin 26.3 PG (27.0-31.0) L Mean Corpuscular Hemoglobin Concent 30.8 G/DL (32.0-36.0) L Red Cell Distribution Width 13.9 % (11.6-14.8) Platelet Count 182 K/UL (150-450) Mean Platelet Volume 7.3 FL (6.5-10.1) Neutrophils (%) (Auto) 63.1 % (45.0-75.0) Lymphocytes (%) (Auto) 24.2 % (20.0-45.0) Monocytes (%) (Auto) 8.3 % (1.0-10.0) Eosinophils (%) (Auto) 3.7 % (0.0-3.0) H Basophils (%) (Auto) 0.6 % (0.0-2.0) Reticulocyte Count 1.1 % (0.0-2.0) Prothrombin Time 10.7 SEC (9.30-11.50) Prothromb Time International Ratio 1.0 (0.9-1.1) Activated Partial Thromboplast Time 26 SEC (23-33) Sodium Level 140 MMOL/L (136-145) Potassium Level 4.2 MMOL/L (3.5-5.1) Chloride Level 105 MMOL/L (98-107) Carbon Dioxide Level 27 MMOL/L (21-32) Anion Gap 9 mmol/L (5-15) Blood Urea Nitrogen 12 mg/dL (7-18) Creatinine 1.1 MG/DL (0.55-1.30) Estimat Glomerular Filtration Rate > 60 mL/min (>60) Glucose Level 197 MG/DL (74-106) #H Calcium Level 8.9 MG/DL (8.5-10.1) Iron Level 37 ug/dL (50-175) L Total Iron Binding Capacity 208 ug/dL (250-450) L Percent Iron Saturation 18 % (15-50) Unsaturated Iron Binding 171 ug/dL (112-346) Ferritin 33 NG/ML (8-388) Total Bilirubin 0.4 MG/DL (0.2-1.0) Aspartate Amino Transf (AST/SGOT) 17 U/L (15-37) Alanine Aminotransferase (ALT/SGPT) 21 U/L (12-78) Alkaline Phosphatase 101 U/L (46-116) Total Protein 6.9 G/DL (6.4-8.2) Albumin 2.9 G/DL (3.4-5.0) L Globulin 4.0 g/dL Albumin/Globulin Ratio 0.7 (1.0-2.7) L Triglycerides Level 83 MG/DL (30-150) Cholesterol Level 106 MG/DL (< 200) LDL Cholesterol 63 mg/dL (<100) HDL Cholesterol 45 MG/DL (40-60) Cholesterol/HDL Ratio 2.4 (3.3-4.4) L Carcinoembryonic Antigen Pending Vitamin B12 Level 127 PG/ML (193-986) L Folate 13.3 NG/ML (8.6-58.9) Thyroid Stimulating Hormone (TSH) 2.022 uiU/mL (0.358-3.740) Free Thyroxine 1.02 NG/DL (0.76-1.46) Stool Occult Blood Pending Microbiology Date/Time Source Procedure Growth Status 12/21/17 14:30 Stool Received Height (Feet): 5 Height (Inches): 10.00 Weight (Pounds): 450 General Appearance: WD/WN, no apparent distress, alert, morbidly obese Cardiovascular: normal rate Respiratory/Chest: normal breath sounds, no respiratory distress Abdominal Exam: normal bowel sounds, non tender, soft Extremities: normal range of motion, non-tender King Kasper NP Dec 21, 2017 15:38
[2017-12-21 16:00] VITALS: BP 137/64
[2017-12-21 20:06] VITALS: BP 152/90
--- NOTE | 2017-12-21 20:29 | Consultation ---
History of Present Illness General Date patient seen: Dec 21, 2017 Chief Complaint: General Complaint Referring physician: HILARIO BAJWA Reason for Consultation: DEJA Present Illness HPI Coverage for [place] 72-year-old male with history of chronic obstructive pulmonary disease, congestive heart failure, hypertension, diabetes, edema, lower extremity weakness, and morbid obesity presents with diarrhea. CXR showed cardiomegaly. BP elevated 150s, patient unable to recall medications. NO fevers, no chest pain , no shortness of breath. labs show low iron and b12 levels, low protein. BNP not elevated. Allergies: Coded Allergies: No Known Allergies (Unverified , 12/20/17) Medication History Miscellaneous Medications Unable to Obtain Medications (Unable To Obtain Meds), (Reported) Patient History Healthcare decision maker Resuscitation status Full Code Advanced Directive on File No Review of Systems Constitutional: Reports: no symptoms Eye: Reports: no symptoms ENT: Reports: no symptoms Respiratory: Reports: no symptoms Cardiovascular: Reports: no symptoms Gastrointestinal: Reports: diarrhea Genitourinary: Reports: no symptoms Musculoskeletal: Reports: no symptoms Skin: Reports: no symptoms Psychiatric: Reports: no symptoms Neurological: Reports: no symptoms Endocrine: Reports: no symptoms Hematologic/Lymphatic: Reports: no symptoms Physical Exam General Appearance: no apparent distress Lines, tubes and drains: peripheral HEENT: normocephalic, atraumatic Neck: non-tender, normal alignment Respiratory/Chest: chest wall non-tender Cardiovascular/Chest: normal peripheral pulses Abdomen: normal bowel sounds, non tender Extremities: normal range of motion, non-tender Skin Exam: normal pigmentation Neurologic: inspector subassembly II-XII grossly normal, no motor/sensory deficits Last 24 Hour Vital Signs Date Time Temp Pulse Resp B/P (MAP) Pulse Ox O2 Delivery O2 Flow Rate FiO2 12/21/17 20:12 Room Air 12/21/17 20:06 98.5 97 18 152/90 (110) 92 98.5 12/21/17 16:00 97.6 84 20 137/64 (88) 98 97.6 12/21/17 12:00 98.2 82 20 153/75 (101) 97 98.2 12/21/17 09:00 Room Air 12/21/17 08:00 97.8 96 20 148/76 (100) 98 97.8 12/21/17 04:00 97.3 81 18 131/78 (95) 96 97.3 12/21/17 00:59 96.7 12/21/17 00:29 96.7 12/21/17 00:00 98.3 82 17 103/61 (75) 95 98.3 12/20/17 21:23 Room Air Intake and Output 12/20/17 12/21/17 19:00 07:00 Intake Total 440 ml Balance 440 ml Intake Oral 440 ml # Voids 1 4 Laboratory Tests Test 12/21/17 05:10 12/21/17 14:30 White Blood Count 5.8 K/UL (4.8-10.8) Red Blood Count 4.07 M/UL (4.70-6.10) L Hemoglobin 10.7 G/DL (14.2-18.0) L Hematocrit 34.7 % (42.0-52.0) L Mean Corpuscular Volume 85 FL (80-99) Mean Corpuscular Hemoglobin 26.3 PG (27.0-31.0) L Mean Corpuscular Hemoglobin Concent 30.8 G/DL (32.0-36.0) L Red Cell Distribution Width 13.9 % (11.6-14.8) Platelet Count 182 K/UL (150-450) Mean Platelet Volume 7.3 FL (6.5-10.1) Neutrophils (%) (Auto) 63.1 % (45.0-75.0) Lymphocytes (%) (Auto) 24.2 % (20.0-45.0) Monocytes (%) (Auto) 8.3 % (1.0-10.0) Eosinophils (%) (Auto) 3.7 % (0.0-3.0) H Basophils (%) (Auto) 0.6 % (0.0-2.0) Reticulocyte Count 1.1 % (0.0-2.0) Prothrombin Time 10.7 SEC (9.30-11.50) Prothromb Time International Ratio 1.0 (0.9-1.1) Activated Partial Thromboplast Time 26 SEC (23-33) Sodium Level 140 MMOL/L (136-145) Potassium Level 4.2 MMOL/L (3.5-5.1) Chloride Level 105 MMOL/L (98-107) Carbon Dioxide Level 27 MMOL/L (21-32) Anion Gap 9 mmol/L (5-15) Blood Urea Nitrogen 12 mg/dL (7-18) Creatinine 1.1 MG/DL (0.55-1.30) Estimat Glomerular Filtration Rate > 60 mL/min (>60) Glucose Level 197 MG/DL (74-106) #H Calcium Level 8.9 MG/DL (8.5-10.1) Iron Level 37 ug/dL (50-175) L Total Iron Binding Capacity 208 ug/dL (250-450) L Percent Iron Saturation 18 % (15-50) Unsaturated Iron Binding 171 ug/dL (112-346) Ferritin 33 NG/ML (8-388) Total Bilirubin 0.4 MG/DL (0.2-1.0) Aspartate Amino Transf (AST/SGOT) 17 U/L (15-37) Alanine Aminotransferase (ALT/SGPT) 21 U/L (12-78) Alkaline Phosphatase 101 U/L (46-116) Total Protein 6.9 G/DL (6.4-8.2) Albumin 2.9 G/DL (3.4-5.0) L Globulin 4.0 g/dL Albumin/Globulin Ratio 0.7 (1.0-2.7) L Triglycerides Level 83 MG/DL (30-150) Cholesterol Level 106 MG/DL (< 200) LDL Cholesterol 63 mg/dL (<100) HDL Cholesterol 45 MG/DL (40-60) Cholesterol/HDL Ratio 2.4 (3.3-4.4) L Carcinoembryonic Antigen Pending Vitamin B12 Level 127 PG/ML (193-986) L Folate 13.3 NG/ML (8.6-58.9) Thyroid Stimulating Hormone (TSH) 2.022 uiU/mL (0.358-3.740) Free Thyroxine 1.02 NG/DL (0.76-1.46) Stool Occult Blood Pending Microbiology Date/Time Source Procedure Growth Status 12/21/17 14:30 Stool Received Height (Feet): 5 Height (Inches): 10.00 Weight (Pounds): 450 Medications Current Medications Medications (Trade) Dose Ordered Sig/Summer Route PRN Reason Start Time Stop Time Status Last Admin Dose Admin Acetaminophen (Tylenol) 650 mg Q4H PRN ORAL fever 12/20/17 14:00 01/19/18 13:59 Al Hydroxide/Mg Hydroxide (Mylanta II) 30 ml Q6H PRN ORAL dyspepsia 12/20/17 14:00 01/19/18 13:59 Clonidine HCl (Catapres Tab) 0.1 mg Q6H PRN ORAL For High Blood Pressure 12/20/17 16:00 01/19/18 15:59 12/20/17 16:26 Cyanocobalamin (Vitamin B12) 1,000 mcg ONCE IM 12/21/17 22:00 12/21/17 23:00 Dextrose (Dextrose 50%) STAT PRN IV Hypoglycemia 12/20/17 13:45 01/19/18 13:44 Dextrose (Dextrose 50%) 25 ml STAT PRN IV Hypoglycemia 12/20/17 14:00 01/19/18 13:59 Heparin Sodium (Porcine) (Heparin 5000 units/ml) 5,000 units EVERY 12 HOURS SUBQ 12/20/17 21:00 01/19/18 20:59 12/21/17 09:03 Insulin Aspart (NovoLOG) BEFORE MEALS AND HS SUBQ 12/20/17 16:30 01/19/18 16:29 12/21/17 16:39 Lorazepam (Ativan 2mg/ml 1ml) 0.5 mg Q4H PRN IV For Anxiety 12/20/17 14:00 12/27/17 13:59 Morphine Sulfate (Morphine Sulfate) 1 mg Q4H PRN IVP For Pain 12/20/17 14:00 12/27/17 13:59 12/21/17 00:29 Ondansetron HCl (Zofran) 4 mg Q6H PRN IVP Nausea & Vomiting 12/20/17 14:00 01/19/18 13:59 Polyethylene Glycol (Miralax) 17 gm HSPRN PRN ORAL Constipation 12/20/17 21:00 01/19/18 20:59 Zolpidem Tartrate (Ambien) 5 mg HSPRN PRN ORAL Insomnia 12/20/17 21:00 12/27/17 20:59 Assessment/Plan Status: stable Assessment/Plan Assessment (1) Morbidly obese (2) Electrolyte imbalance (3) Diarrhea (4) Anemia (5) Constipation (6) CHF (7) Obesity (8) Diabetes (9) COPD (10) Hypertension Plan Iron supplementation B12 supplementation Weight loss Ambulate Statin Aspirin Echocardiogram to evaluate LV function stool studies Physical therapy BP control - lisinopril 40 mg daily Christiano Gtz M.D. Dec 21, 2017 20:29
[2017-12-21] MEDS: Atorvastatin 20mg tab ORAL SCH (20:50)
[2017-12-21] MEDS ORDERED: Vitamin B12 1000mcg/ml Inj IM SCH (22:00)
[2017-12-22] VITALS: BP 149/78
[2017-12-22 04:00] VITALS: BP 132/54
[2017-12-22] MEDS: NovoLOG Insulin Flexpen SUBQ SCH ×4 (06:18→20:33)
[2017-12-22 06:34] LABS: BASOPHILS % (AUTO) 0.8 % (0.0-2.0); EOSINOPHILS % (AUTO) 3.9 % (0.0-3.0); HEMATOCRIT 34.9 % (42.0-52.0); HEMOGLOBIN 11.5 G/DL (14.2-18.0); LYMPHOCYTES % (AUTO) 25.5 % (20.0-45.0); MEAN CORPUSCULAR VOLUME 85 FL (80-99); MONOCYTES % (AUTO) 8.4 % (1.0-10.0); NEUTROPHILS % (AUTO) 61.4 % (45.0-75.0); PLATELET COUNT 179 K/UL (150-450); RED BLOOD COUNT 4.12 M/UL (4.70-6.10); RED CELL DISTRIBUTION WIDTH 13.9 % (11.6-14.8); WHITE BLOOD COUNT 5.2 K/UL (4.8-10.8)
[2017-12-22 06:53] LABS: ANION GAP 9 mmol/L (5-15); BLOOD UREA NITROGEN 13 mg/dL (7-18); CALCIUM 8.9 MG/DL (8.5-10.1); CARBON DIOXIDE 27 MMOL/L (21-32); CHLORIDE 103 MMOL/L (98-107); CREATININE 1.1 MG/DL (0.55-1.30); POTASSIUM 4.2 MMOL/L (3.5-5.1); SODIUM 138 MMOL/L (136-145)
--- NOTE | 2017-12-22 07:06 | Pulmonology Progress Note ---
Assessment/Plan Assessment/Plan ASSESSMENT diarrhea possible gastroenteritis COPD CHF hypertension diabetes out of control morbid obesity anemia of chronic disease B12 anemia urinary incontinence PLAN OF CARE Med Surg floor stool studies stool C dif negative afebrile, no leuk, poss gastroenteritis GI follows O2 HHN prn CXR no acute C/P pathology anemia workup c/w anemia of chronic disease and B12 deficiency s/p B12 1 and then monthly stool OB negative, and CEA WNL PPI monitor H&H with goal to keep Hgb above 7 , stable BP management with ALTAF and CCB BS management with SSI , add Levemir, check HgA1c get UA and culture possible UTI? ID consult DVT prophylaxis pain management supportive [facility] meds resumed case discussed and evaluated by supervising physician Subjective Allergies: Coded Allergies: No Known Allergies (Unverified , 12/20/17) Subjective afebrile, no leukocytosis diarrhea improving stool C dif negative BS not controlled reported urinary incontinence over night ( new for him) no CP no SOB Objective Last 24 Hour Vital Signs Date Time Temp Pulse Resp B/P (MAP) Pulse Ox O2 Delivery O2 Flow Rate FiO2 12/22/17 04:00 98.0 78 18 132/54 (80) 94 98.0 12/22/17 00:28 98.5 12/22/17 00:00 98.2 84 17 149/78 (101) 98 98.2 12/21/17 23:29 98.5 12/21/17 20:12 Room Air 12/21/17 20:06 98.5 97 18 152/90 (110) 92 98.5 12/21/17 16:00 97.6 84 20 137/64 (88) 98 97.6 12/21/17 12:00 98.2 82 20 153/75 (101) 97 98.2 12/21/17 09:00 Room Air 12/21/17 08:00 97.8 96 20 148/76 (100) 98 97.8 Intake and Output 12/21/17 12/22/17 19:00 07:00 Intake Total 960 ml Output Total 400 ml Balance 560 ml Intake Oral 960 ml Output Urine Total 400 ml # Voids 4 # Bowel Movements 1 General Appearance: no acute distress, other - A/A/O x3 morbidly obese male HEENT: normocephalic, atraumatic, anicteric, mucous membranes moist, PERRL Respiratory/Chest: lungs clear, normal breath sounds, no respiratory distress Cardiovascular: normal peripheral pulses, normal rate, no JVD Abdomen: normal bowel sounds, soft, non tender - obese Extremities: pedal pulses normal Neurologic/Psychiatric: alert, oriented x 3, responsive Musculoskeletal: normal muscle bulk Microbiology Date/Time Source Procedure Growth Status 12/20/17 15:30 Nasal Nares MRSA Culture - Final Staphylococcus Aureus - Mrsa Complete 12/21/17 14:30 Stool Clostridium difficile Toxin Assay - Final Complete 12/20/17 15:30 Rectum - Preliminary Resulted Laboratory Tests 12/21/17 14:30: Stool Occult Blood Neg 12/22/17 04:50: White Blood Count 5.2, Red Blood Count 4.12L, Hemoglobin 11.5L, Hematocrit 34.9L , Mean Corpuscular Volume 85, Mean Corpuscular Hemoglobin 28.0, Mean Corpuscular Hemoglobin Concent 33.0, Red Cell Distribution Width 13.9, Platelet Count 179, Mean Platelet Volume 7.1, Neutrophils (%) (Auto) 61.4, Lymphocytes (% ) (Auto) 25.5, Monocytes (%) (Auto) 8.4, Eosinophils (%) (Auto) 3.9H, Basophils (%) (Auto) 0.8, Sodium Level 138, Potassium Level 4.2, Chloride Level 103, Carbon Dioxide Level 27, Anion Gap 9, Blood Urea Nitrogen 13, Creatinine 1.1, Estimat Glomerular Filtration Rate > 60, Glucose Level 218H, Calcium Level 8.9 Current Medications Medications (Trade) Dose Ordered Sig/Summer Route PRN Reason Start Time Stop Time Status Last Admin Dose Admin Acetaminophen (Tylenol) 650 mg Q4H PRN ORAL fever 12/20/17 14:00 01/19/18 13:59 12/21/17 23:29 Al Hydroxide/Mg Hydroxide (Mylanta II) 30 ml Q6H PRN ORAL dyspepsia 12/20/17 14:00 01/19/18 13:59 Aspirin (ASA) 81 mg DAILY NG 12/22/17 09:00 01/21/18 08:59 Atorvastatin Calcium (Lipitor) 20 mg BEDTIME ORAL 12/21/17 21:00 01/20/18 20:59 12/21/17 20:50 Clonidine HCl (Catapres Tab) 0.1 mg Q6H PRN ORAL For High Blood Pressure 12/20/17 16:00 01/19/18 15:59 12/20/17 16:26 Dextrose (Dextrose 50%) STAT PRN IV Hypoglycemia 12/20/17 13:45 01/19/18 13:44 Dextrose (Dextrose 50%) 25 ml STAT PRN IV Hypoglycemia 12/20/17 14:00 01/19/18 13:59 Heparin Sodium (Porcine) (Heparin 5000 units/ml) 5,000 units EVERY 12 HOURS SUBQ 12/20/17 21:00 01/19/18 20:59 12/21/17 20:51 Insulin Aspart (NovoLOG) BEFORE MEALS AND HS SUBQ 12/20/17 16:30 01/19/18 16:29 12/22/17 06:18 Lisinopril (Prinivil) 40 mg DAILY ORAL 12/22/17 09:00 01/21/18 08:59 Lorazepam (Ativan 2mg/ml 1ml) 0.5 mg Q4H PRN IV For Anxiety 12/20/17 14:00 12/27/17 13:59 Morphine Sulfate (Morphine Sulfate) 1 mg Q4H PRN IVP For Pain 12/20/17 14:00 12/27/17 13:59 12/21/17 00:29 Ondansetron HCl (Zofran) 4 mg Q6H PRN IVP Nausea & Vomiting 12/20/17 14:00 01/19/18 13:59 Polyethylene Glycol (Miralax) 17 gm HSPRN PRN ORAL Constipation 12/20/17 21:00 01/19/18 20:59 Zolpidem Tartrate (Ambien) 5 mg HSPRN PRN ORAL Insomnia 12/20/17 21:00 12/27/17 20:59 Melinda Crespo PATIENT CARE COORDINATOR Dec 22, 2017 07:06
[2017-12-22 08:00] VITALS: BP 175/85
[2017-12-22] MEDS: Lisinopril 20mg tab ORAL SCH (08:44)
[2017-12-22] MEDS: Aspirin Baby 81mg NG SCH (08:44)
[2017-12-22] MEDS: Heparin 5000 units/ml inj SUBQ SCH ×2 (08:49→20:32)
--- NOTE | 2017-12-22 10:53 | Cardiology Progress Note ---
Assessment/Plan Status: stable Assessment/Plan Assessment (1) Morbidly obese (2) Electrolyte imbalance (3) Diarrhea (4) Anemia (5) Constipation (6) CHF (7) Obesity (8) Diabetes (9) COPD (10) Hypertension Plan Iron supplementation B12 supplementation Weight loss Ambulate Statin Aspirin Echocardiogram to evaluate LV function stool studies Physical therapy BP control - lisinopril 40 mg daily, add 10 mg norvasc today Subjective Cardiovascular: Reports: no symptoms Respiratory: Reports: no symptoms Gastrointestinal/Abdominal: Reports: no symptoms Genitourinary: Reports: no symptoms Subjective No acute events, MRSA nares positive. NO complaints. Vitals stable, BP high, patient comfortable Objective Last 24 Hour Vital Signs Date Time Temp Pulse Resp B/P (MAP) Pulse Ox O2 Delivery O2 Flow Rate FiO2 12/22/17 08:44 175/85 12/22/17 08:15 Room Air 12/22/17 08:00 97.7 20 175/85 (115) 100 97.7 12/22/17 04:00 98.0 78 18 132/54 (80) 94 98.0 12/22/17 00:28 98.5 12/22/17 00:00 98.2 84 17 149/78 (101) 98 98.2 12/21/17 23:29 98.5 12/21/17 20:12 Room Air 12/21/17 20:06 98.5 97 18 152/90 (110) 92 98.5 12/21/17 16:00 97.6 84 20 137/64 (88) 98 97.6 12/21/17 12:00 98.2 82 20 153/75 (101) 97 98.2 General Appearance: WD/WN, no apparent distress, alert EENT: PERRL/EOMI, normal ENT inspection Neck: non-tender, normal alignment, supple Rhythm: NSR Cardiovascular: normal peripheral pulses, normal rate, regularly irregular Respiratory/Chest: chest wall non-tender, lungs clear Abdomen: normal bowel sounds, non tender Extremities: normal range of motion, non-tender Neurologic: lingo cleaner II-XII grossly normal Intake and Output 12/21/17 12/22/17 19:00 07:00 Intake Total 960 ml Output Total 400 ml Balance 560 ml Intake Oral 960 ml Output Urine Total 400 ml # Voids 4 # Bowel Movements 1 Laboratory Tests Test 12/21/17 14:30 12/22/17 04:50 Stool Occult Blood Neg (NEGATIVE) White Blood Count 5.2 K/UL (4.8-10.8) Red Blood Count 4.12 M/UL (4.70-6.10) L Hemoglobin 11.5 G/DL (14.2-18.0) L Hematocrit 34.9 % (42.0-52.0) L Mean Corpuscular Volume 85 FL (80-99) Mean Corpuscular Hemoglobin 28.0 PG (27.0-31.0) Mean Corpuscular Hemoglobin Concent 33.0 G/DL (32.0-36.0) Red Cell Distribution Width 13.9 % (11.6-14.8) Platelet Count 179 K/UL (150-450) Mean Platelet Volume 7.1 FL (6.5-10.1) Neutrophils (%) (Auto) 61.4 % (45.0-75.0) Lymphocytes (%) (Auto) 25.5 % (20.0-45.0) Monocytes (%) (Auto) 8.4 % (1.0-10.0) Eosinophils (%) (Auto) 3.9 % (0.0-3.0) H Basophils (%) (Auto) 0.8 % (0.0-2.0) Sodium Level 138 MMOL/L (136-145) Potassium Level 4.2 MMOL/L (3.5-5.1) Chloride Level 103 MMOL/L (98-107) Carbon Dioxide Level 27 MMOL/L (21-32) Anion Gap 9 mmol/L (5-15) Blood Urea Nitrogen 13 mg/dL (7-18) Creatinine 1.1 MG/DL (0.55-1.30) Estimat Glomerular Filtration Rate > 60 mL/min (>60) Glucose Level 218 MG/DL (74-106) H Calcium Level 8.9 MG/DL (8.5-10.1) Microbiology Date/Time Source Procedure Growth Status 12/20/17 15:30 Nasal Nares MRSA Culture - Final Staphylococcus Aureus - Mrsa Complete 12/21/17 14:30 Stool Clostridium difficile Toxin Assay - Final Complete 12/20/17 15:30 Rectum VRE Culture - Final Enterococcus Faecalis - Vre Complete 12/20/17 15:30 Rectum - Final NO CARBAPENEM-RESISTANT ENTEROBACTERI... Complete BretsoChristiano cline M.D. Dec 22, 2017 10:53
[2017-12-22] MEDS ORDERED: Levemir Flexpen SUBQ SCH (11:30)
--- NOTE | 2017-12-22 11:46 | General Progress Note ---
Assessment/Plan Status: stable Assessment/Plan INTERNAL MEDICINE PROGRESS NOTE Covering for Dr. Diane # DM # COPD # CHF # HTN # Anemia # Morbid obesity Assessment/Plan ot pt diet o2 pulm tx gi f/u cbc bmp am dc plan Subjective Date patient seen: Dec 22, 2017 ROS Limited/Unobtainable: Yes Hematologic/Lymphatic: Reports: anemia Allergies: Coded Allergies: No Known Allergies (Unverified , 12/20/17) All Systems: reviewed and negative except above Subjective No acute events, MRSA nares positive. NO complaints. Vitals stable, BP high, patient comfortable Objective Last 24 Hour Vital Signs Date Time Temp Pulse Resp B/P (MAP) Pulse Ox O2 Delivery O2 Flow Rate FiO2 12/22/17 08:44 175/85 12/22/17 08:15 Room Air 12/22/17 08:00 97.7 20 175/85 (115) 100 97.7 12/22/17 04:00 98.0 78 18 132/54 (80) 94 98.0 12/22/17 00:28 98.5 12/22/17 00:00 98.2 84 17 149/78 (101) 98 98.2 12/21/17 23:29 98.5 12/21/17 20:12 Room Air 12/21/17 20:06 98.5 97 18 152/90 (110) 92 98.5 12/21/17 16:00 97.6 84 20 137/64 (88) 98 97.6 12/21/17 12:00 98.2 82 20 153/75 (101) 97 98.2 Intake and Output 12/21/17 12/22/17 19:00 07:00 Intake Total 960 ml Output Total 400 ml Balance 560 ml Intake Oral 960 ml Output Urine Total 400 ml # Voids 4 # Bowel Movements 1 Laboratory Tests 12/21/17 14:30: Stool Occult Blood Neg 12/22/17 04:50: White Blood Count 5.2, Red Blood Count 4.12L, Hemoglobin 11.5L, Hematocrit 34.9L , Mean Corpuscular Volume 85, Mean Corpuscular Hemoglobin 28.0, Mean Corpuscular Hemoglobin Concent 33.0, Red Cell Distribution Width 13.9, Platelet Count 179, Mean Platelet Volume 7.1, Neutrophils (%) (Auto) 61.4, Lymphocytes (% ) (Auto) 25.5, Monocytes (%) (Auto) 8.4, Eosinophils (%) (Auto) 3.9H, Basophils (%) (Auto) 0.8, Sodium Level 138, Potassium Level 4.2, Chloride Level 103, Carbon Dioxide Level 27, Anion Gap 9, Blood Urea Nitrogen 13, Creatinine 1.1, Estimat Glomerular Filtration Rate > 60, Glucose Level 218H, Calcium Level 8.9 Height (Feet): 5 Height (Inches): 10.00 Weight (Pounds): 450 General Appearance: no apparent distress, alert EENT: PERRL/EOMI Neck: normal alignment, supple Cardiovascular: normal peripheral pulses Respiratory/Chest: no respiratory distress Abdomen: soft Dino Corbin MD Dec 22, 2017 11:46
[2017-12-22 12:00] VITALS: BP 160/79
[2017-12-22] MEDS: Piperacillin/Tazobactam 3.375 GM in D5W 110 ML IVPB SCH ×2 (14:35→22:39)
[2017-12-22 16:00] VITALS: BP 148/73
--- NOTE | 2017-12-22 17:02 | General Progress Note ---
Assessment/Plan Assessment/Plan Assessment - diarrhea, appears to have resolved - morbid obesity - mild anemia Recommendations - po as tolerated - follow up symptoms - d/c planning - F/u with Dr. Vanegas for outpatient EGD/Colon Subjective Allergies: Coded Allergies: No Known Allergies (Unverified , 12/20/17) Subjective Feels OK no diarrhea tolerating PO no nausea Objective Last 24 Hour Vital Signs Date Time Temp Pulse Resp B/P (MAP) Pulse Ox O2 Delivery O2 Flow Rate FiO2 12/22/17 16:00 98.5 84 22 148/73 (98) 100 98.5 12/22/17 12:25 78 175/85 12/22/17 12:00 97.3 93 20 160/79 (106) 99 97.3 12/22/17 08:44 175/85 12/22/17 08:15 Room Air 12/22/17 08:00 97.7 20 175/85 (115) 100 97.7 12/22/17 04:00 98.0 78 18 132/54 (80) 94 98.0 12/22/17 00:28 98.5 12/22/17 00:00 98.2 84 17 149/78 (101) 98 98.2 12/21/17 23:29 98.5 12/21/17 20:12 Room Air 12/21/17 20:06 98.5 97 18 152/90 (110) 92 98.5 Intake and Output 12/21/17 12/22/17 19:00 07:00 Intake Total 960 ml Output Total 400 ml Balance 560 ml Intake Oral 960 ml Output Urine Total 400 ml # Voids 4 # Bowel Movements 1 Laboratory Tests 12/22/17 04:50: White Blood Count 5.2, Red Blood Count 4.12L, Hemoglobin 11.5L, Hematocrit 34.9L , Mean Corpuscular Volume 85, Mean Corpuscular Hemoglobin 28.0, Mean Corpuscular Hemoglobin Concent 33.0, Red Cell Distribution Width 13.9, Platelet Count 179, Mean Platelet Volume 7.1, Neutrophils (%) (Auto) 61.4, Lymphocytes (% ) (Auto) 25.5, Monocytes (%) (Auto) 8.4, Eosinophils (%) (Auto) 3.9H, Basophils (%) (Auto) 0.8, Sodium Level 138, Potassium Level 4.2, Chloride Level 103, Carbon Dioxide Level 27, Anion Gap 9, Blood Urea Nitrogen 13, Creatinine 1.1, Estimat Glomerular Filtration Rate > 60, Glucose Level 218H, Calcium Level 8.9 Height (Feet): 5 Height (Inches): 10.00 Weight (Pounds): 450 Objective NCAT supple CTA RRR abd central obesity, old surgical scars (+) edema Elver Becker MD Dec 22, 2017 17:02
--- NOTE | 2017-12-22 18:45 | Consultation ---
DATE OF CONSULTATION: 12/22/2017 INFECTIOUS DISEASE CONSULTATION CONSULTING PHYSICIAN: Odalys Ring M.D. REFERRING PHYSICIAN: Maco Dinae D.O. REASON FOR CONSULTATION: Urinary tract infection. HISTORY OF PRESENTING ILLNESS: This is a 72-year-old gentleman with history of diabetes, hypertension, colon cancer, COPD, morbid obesity, and congestive heart failure, who came in with diarrhea along with fever and chills. He also complains of dysuria. An Infectious Diseases consultation has been obtained for antibiotics. PAST MEDICAL HISTORY: 1. History of diabetes. 2. Hypertension. 3. COPD. 4. Congestive heart failure. 5. Morbid obesity. MEDICATIONS: As an inpatient, he is on aspirin, lisinopril, atorvastatin, MiraLAX, Ambien, subcutaneous heparin, insulin, clonidine, Tylenol, morphine, Zofran, Ativan and Mylanta. ALLERGIES: No known drug allergies. SOCIAL HISTORY: He used to be a smoker. He does not smoke anymore. No history of alcohol or drug use. FAMILY HISTORY: Noncontributory. REVIEW OF SYSTEMS: RESPIRATORY: He does have fever and chills. No cough. No shortness of breath or chest pain. CARDIAC: No chest pain. No palpitations. No dizziness. No syncope. GASTROINTESTINAL: No nausea. No vomiting. No abdominal pain or diarrhea. GENITOURINARY: He complains of dysuria, but no hematuria. PHYSICAL EXAMINATION: VITAL SIGNS: Temperature of 97.7 degrees, T-max of 98.5 degrees, pulse of 78, respiratory rate 20, blood pressure 145/85 and O2 saturation of 100%. HEENT: Pupils equally reactive to light and accommodation. Mouth appears clean without thrush. NECK: Supple. No adenopathy. No JVD. CARDIOVASCULAR: Regular rate and rhythm. No murmurs. LUNGS: Clear to auscultation bilaterally. No crackles. No wheezes. ABDOMEN: Soft and nontender. No organomegaly. EXTREMITIES: No cyanosis. No clubbing. Edema noted bilaterally. LABORATORY AND DIAGNOSTIC DATA: White count 5.2, hemoglobin 11.5, hematocrit 34.9, MCV 85, platelet count of 179 and neutrophils of 61%. Sodium 138, potassium 4.2, chloride 103, bicarbonate 27, BUN 13, creatinine 1.1, and glucose 218. Calcium 8.9. Total bilirubin 0.4. AST 17, ALT 21, and alkaline phosphatase 101. Total protein 6.9. Albumin 2.9. Stool for C. difficile is negative. Rectal swab was positive for VRE. Nasal swab was positive for MRSA. Chest x-ray is showing no acute process. ASSESSMENT: 1. This is a 72-year-old gentleman with history of diabetes and hypertension, who comes in with dysuria, fevers and chills, would be concerned regarding a urinary tract infection. 2. Diabetes. 3. Hypertension. 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 PLAN: 1. We will order urinalysis and urine cultures. 2. We will start the patient on Zosyn. 3. We will follow up cultures and adjust antibiotics accordingly. I would like to thank, Dr. Maco Diane, for this consultation. This consultation has been done on behalf of Dr. Don Wagner. Odalys Ring M.D. DR: MODE JOB#: [id number] CC:
[2017-12-22 20:00] VITALS: BP 151/80
[2017-12-22] MEDS: Atorvastatin 20mg tab ORAL SCH (20:31)
[2017-12-22 23:43] LABS: APPEARANCE,URINE CLEAR; BILIRUBIN, URINE NEGATIVE (NEGATIVE); COLOR,URINE PALE YELLOW; GLUCOSE, URINE (UA) NEGATIVE (NEGATIVE); KETONES,URINE NEGATIVE (NEGATIVE); LEUKOCYTE ESTERASE ,URINE 3+ (NEGATIVE); NITRITE,URINE NEGATIVE (NEGATIVE); PH,URINE 6.5 (4.5-8.0); PROTEIN,URINE NEGATIVE (NEGATIVE); UROBILINOGEN,URINE NORMAL MG/DL (0.0-1.0)
[2017-12-23 04:00] VITALS: BP 142/79
[2017-12-23] MEDS: Piperacillin/Tazobactam 3.375 GM in D5W 110 ML IVPB SCH (05:32)
[2017-12-23] MEDS: NovoLOG Insulin Flexpen SUBQ SCH ×4 (06:01→21:28)
[2017-12-23 06:50] LABS: ANION GAP 5 mmol/L (5-15); BLOOD UREA NITROGEN 13 mg/dL (7-18); CALCIUM 9.3 MG/DL (8.5-10.1); CARBON DIOXIDE 30 MMOL/L (21-32); CHLORIDE 104 MMOL/L (98-107); CREATININE 1.2 MG/DL (0.55-1.30); POTASSIUM 4.4 MMOL/L (3.5-5.1); SODIUM 139 MMOL/L (136-145)
[2017-12-23 06:53] LABS: BASOPHILS % (AUTO) 0.5 % (0.0-2.0); EOSINOPHILS % (AUTO) 3.3 % (0.0-3.0); HEMATOCRIT 37.1 % (42.0-52.0); HEMOGLOBIN 11.5 G/DL (14.2-18.0); MEAN CORPUSCULAR VOLUME 85 FL (80-99); MONOCYTES % (AUTO) 7.7 % (1.0-10.0); NEUTROPHILS % (AUTO) 65.4 % (45.0-75.0); PLATELET COUNT 189 K/UL (150-450); RED BLOOD COUNT 4.36 M/UL (4.70-6.10); RED CELL DISTRIBUTION WIDTH 13.9 % (11.6-14.8); WHITE BLOOD COUNT 6.3 K/UL (4.8-10.8)
[2017-12-23 08:21] VITALS: BP 138/61
--- NOTE | 2017-12-23 08:58 | Pulmonology Progress Note ---
Assessment/Plan Assessment/Plan ASSESSMENT diarrhea possible gastroenteritis COPD CHF hypertension diabetes out of control morbid obesity anemia of chronic disease B12 deficiency anemia urinary incontinence pyuria, possible UTI PLAN OF CARE Med Surg floor stool studies stool C dif negative afebrile, no leuk, poss gastroenteritis GI follows O2 HHN prn CXR no acute C/P pathology anemia workup c/w anemia of chronic disease and B12 deficiency s/p B12 1 and then monthly stool OB negative, and CEA WNL PPI monitor H&H with goal to keep Hgb above 7 , stable BP management with CCB and ALTAF BS management, SSI and increase Levemir dose, GyV2x-4.0 not at goal UA+ pyuria, leuk esterase, few bacteria empiric abx, fup with urine cx ID follows DVT prophylaxis pain management supportive correction meds resumed case discussed and evaluated by supervising physician Subjective Allergies: Coded Allergies: No Known Allergies (Unverified , 12/20/17) Subjective afebrile, no leukocytosis diarrhea improving stool C dif negative BS not controlled reported urinary incontinence over night ( new for him) no CP no SOB Objective Last 24 Hour Vital Signs Date Time Temp Pulse Resp B/P (MAP) Pulse Ox O2 Delivery O2 Flow Rate FiO2 12/23/17 08:21 97.7 85 20 138/61 (86) 98 97.7 12/23/17 04:00 98.1 82 20 142/79 (100) 97 98.1 12/23/17 00:00 85 18 96 12/22/17 21:00 Room Air 12/22/17 20:00 98.5 80 19 151/80 (103) 96 98.5 12/22/17 16:00 98.5 84 22 148/73 (98) 100 98.5 12/22/17 12:25 78 175/85 12/22/17 12:00 97.3 93 20 160/79 (106) 99 97.3 Intake and Output 12/22/17 12/23/17 19:00 07:00 Intake Total 590 ml 617.5 ml Balance 590 ml 617.5 ml Intake Oral 480 ml 480 ml IV Total 110 ml 137.5 ml # Voids 3 2 # Bowel Movements 1 Objective General Appearance: no acute distress, other - A/A/O x3 morbidly obese male HEENT: normocephalic, atraumatic, anicteric, mucous membranes moist, PERRL Respiratory/Chest: lungs clear, normal breath sounds, no respiratory distress Cardiovascular: normal peripheral pulses, normal rate, no JVD Abdomen: normal bowel sounds, soft, non tender - obese Extremities: pedal pulses normal Neurologic/Psychiatric: alert, oriented x 3, responsive Musculoskeletal: normal muscle bulk Microbiology Date/Time Source Procedure Growth Status 12/20/17 15:30 Nasal Nares MRSA Culture - Final Staphylococcus Aureus - Mrsa Complete 12/21/17 14:30 Stool Clostridium difficile Toxin Assay - Final Complete 12/20/17 15:30 Rectum VRE Culture - Final Enterococcus Faecalis - Vre Complete 12/20/17 15:30 Rectum - Final NO CARBAPENEM-RESISTANT ENTEROBACTERI... Complete Laboratory Tests 12/22/17 23:00: Urine Color Pale yellow, Urine Appearance Clear, Urine pH 6.5, Urine Specific [place] 1.010, Urine Protein Negative, Urine Glucose (UA) Negative, Urine Ketones Negative, Urine Occult Blood Negative, Urine Nitrite Negative, Urine Bilirubin Negative, Urine Urobilinogen Normal, Urine Leukocyte Esterase 3+H, Urine RBC 0-2H, Urine WBC 10-15H, Urine Squamous Epithelial Cells Occasional, Urine Bacteria Few 12/23/17 04:55: White Blood Count 6.3, Red Blood Count 4.36L, Hemoglobin 11.5L, Hematocrit 37.1L , Mean Corpuscular Volume 85, Mean Corpuscular Hemoglobin 26.4L, Mean Corpuscular Hemoglobin Concent 31.0L, Red Cell Distribution Width 13.9, Platelet Count 189, Mean Platelet Volume 7.4, Neutrophils (%) (Auto) 65.4, Lymphocytes (%) (Auto) 23.0, Monocytes (%) (Auto) 7.7, Eosinophils (%) (Auto) 3.3H, Basophils (%) (Auto) 0.5, Sodium Level 139, Potassium Level 4.4, Chloride Level 104, Carbon Dioxide Level 30, Anion Gap 5, Blood Urea Nitrogen 13, Creatinine 1.2, Estimat Glomerular Filtration Rate > 60, Glucose Level 197H, Hemoglobin A1c 8.0H, Calcium Level 9.3 Current Medications Medications (Trade) Dose Ordered Sig/Summer Route PRN Reason Start Time Stop Time Status Last Admin Dose Admin Acetaminophen (Tylenol) 650 mg Q4H PRN ORAL fever 12/20/17 14:00 01/19/18 13:59 12/22/17 21:18 Al Hydroxide/Mg Hydroxide (Mylanta II) 30 ml Q6H PRN ORAL dyspepsia 12/20/17 14:00 01/19/18 13:59 Amlodipine Besylate (Norvasc) 10 mg DAILY ORAL 12/22/17 11:30 01/21/18 11:29 12/22/17 12:25 Aspirin (ASA) 81 mg DAILY NG 12/22/17 09:00 01/21/18 08:59 12/22/17 08:44 Atorvastatin Calcium (Lipitor) 20 mg BEDTIME ORAL 12/21/17 21:00 01/20/18 20:59 12/22/17 20:31 Clonidine HCl (Catapres Tab) 0.1 mg Q6H PRN ORAL For High Blood Pressure 12/20/17 16:00 01/19/18 15:59 12/20/17 16:26 Dextrose (Dextrose 50%) STAT PRN IV Hypoglycemia 12/20/17 13:45 01/19/18 13:44 Dextrose (Dextrose 50%) 25 ml STAT PRN IV Hypoglycemia 12/20/17 14:00 01/19/18 13:59 Heparin Sodium (Porcine) (Heparin 5000 units/ml) 5,000 units EVERY 12 HOURS SUBQ 12/20/17 21:00 01/19/18 20:59 12/22/17 20:32 Insulin Aspart (NovoLOG) BEFORE MEALS AND HS SUBQ 12/20/17 16:30 01/19/18 16:29 12/23/17 06:01 Insulin Detemir (Levemir) 15 units DAILY SUBQ 12/22/17 11:30 01/21/18 11:29 12/22/17 13:21 Lisinopril (Prinivil) 40 mg DAILY ORAL 12/22/17 09:00 01/21/18 08:59 12/22/17 08:44 Lorazepam (Ativan 2mg/ml 1ml) 0.5 mg Q4H PRN IV For Anxiety 12/20/17 14:00 12/27/17 13:59 Morphine Sulfate (Morphine Sulfate) 1 mg Q4H PRN IVP For Pain 12/20/17 14:00 12/27/17 13:59 12/21/17 00:29 Ondansetron HCl (Zofran) 4 mg Q6H PRN IVP Nausea & Vomiting 12/20/17 14:00 01/19/18 13:59 Polyethylene Glycol (Miralax) 17 gm HSPRN PRN ORAL Constipation 12/20/17 21:00 01/19/18 20:59 Zolpidem Tartrate (Ambien) 5 mg HSPRN PRN ORAL Insomnia 12/20/17 21:00 12/27/17 20:59 Melinda Crespo [employer] Dec 23, 2017 08:58
[2017-12-23] MEDS ORDERED: Lisinopril 20mg tab ORAL SCH (09:00)
[2017-12-23 09:12] VITALS: BP 148/78
[2017-12-23] MEDS: Aspirin Baby 81mg NG SCH (09:17)
[2017-12-23] MEDS: Lisinopril 20mg tab ORAL SCH (09:18)
[2017-12-23] MEDS: Heparin 5000 units/ml inj SUBQ SCH ×2 (09:19→21:29)
[2017-12-23] MEDS: Levemir Flexpen SUBQ SCH (11:18)
--- NOTE | 2017-12-23 11:45 | Infectious Diseases Prog Note ---
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 DM Morbid obesity HPN DEJA P; Observe off antibiotic start on Flomax Waiting for placement Subjective ROS Limited/Unobtainable: No HEENT: Reports: no symptoms Respiratory: Reports: no symptoms Cardiovascular: Reports: no symptoms Gastrointestinal/Abdominal: Reports: no symptoms Genitourinary: Reports: dysuria, other - hesitency Musculoskeletal: Reports: pain, other - back Allergies: Coded Allergies: No Known Allergies (Unverified , 12/20/17) Objective Vital Signs Last 24 Hour Vital Signs Date Time Temp Pulse Resp B/P (MAP) Pulse Ox O2 Delivery O2 Flow Rate FiO2 12/23/17 09:18 148/78 12/23/17 09:17 90 148/78 12/23/17 09:12 90 148/78 (101) 12/23/17 09:00 Room Air 12/23/17 08:21 97.7 85 20 138/61 (86) 98 97.7 12/23/17 04:00 98.1 82 20 142/79 (100) 97 98.1 12/23/17 00:00 85 18 96 12/22/17 21:00 Room Air 12/22/17 20:00 98.5 80 19 151/80 (103) 96 98.5 12/22/17 16:00 98.5 84 22 148/73 (98) 100 98.5 12/22/17 12:25 78 175/85 12/22/17 12:00 97.3 93 20 160/79 (106) 99 97.3 Height (Feet): 5 Height (Inches): 10.00 Weight (Pounds): 450 General Appearance: other - morbidly obese Respiratory/Chest: lungs clear Cardiovascular: normal rate Abdomen: soft, non tender Extremities: other - no significant edema Neurologic/Psychiatric: alert, oriented x 3, responsive Microbiology Date/Time Source Procedure Growth Status 12/20/17 15:30 Nasal Nares MRSA Culture - Final Staphylococcus Aureus - Mrsa Complete 12/21/17 14:30 Stool Clostridium difficile Toxin Assay - Final Complete 12/22/17 23:00 Urine,Clean Catch Urine Culture - Preliminary NO GROWTH Resulted 12/20/17 15:30 Rectum VRE Culture - Final Enterococcus Faecalis - Vre Complete 12/20/17 15:30 Rectum - Final NO CARBAPENEM-RESISTANT ENTEROBACTERI... Complete Laboratory Tests Test 12/22/17 23:00 12/23/17 04:55 Urine Color Pale yellow Urine Appearance Clear Urine pH 6.5 (4.5-8.0) Urine Specific [place] 1.010 (1.005-1.035) Urine Protein Negative (NEGATIVE) Urine Glucose (UA) Negative (NEGATIVE) Urine Ketones Negative (NEGATIVE) Urine Occult Blood Negative (NEGATIVE) Urine Nitrite Negative (NEGATIVE) Urine Bilirubin Negative (NEGATIVE) Urine Urobilinogen Normal MG/DL (0.0-1.0) Urine Leukocyte Esterase 3+ (NEGATIVE) H Urine RBC 0-2 /HPF (0 - 0) H Urine WBC 10-15 /HPF (0 - 0) H Urine Squamous Epithelial Cells Occasional /LPF Urine Bacteria Few /HPF (NONE) White Blood Count 6.3 K/UL (4.8-10.8) Red Blood Count 4.36 M/UL (4.70-6.10) L Hemoglobin 11.5 G/DL (14.2-18.0) L Hematocrit 37.1 % (42.0-52.0) L Mean Corpuscular Volume 85 FL (80-99) Mean Corpuscular Hemoglobin 26.4 PG (27.0-31.0) L Mean Corpuscular Hemoglobin Concent 31.0 G/DL (32.0-36.0) L Red Cell Distribution Width 13.9 % (11.6-14.8) Platelet Count 189 K/UL (150-450) Mean Platelet Volume 7.4 FL (6.5-10.1) Neutrophils (%) (Auto) 65.4 % (45.0-75.0) Lymphocytes (%) (Auto) 23.0 % (20.0-45.0) Monocytes (%) (Auto) 7.7 % (1.0-10.0) Eosinophils (%) (Auto) 3.3 % (0.0-3.0) H Basophils (%) (Auto) 0.5 % (0.0-2.0) Sodium Level 139 MMOL/L (136-145) Potassium Level 4.4 MMOL/L (3.5-5.1) Chloride Level 104 MMOL/L (98-107) Carbon Dioxide Level 30 MMOL/L (21-32) Anion Gap 5 mmol/L (5-15) Blood Urea Nitrogen 13 mg/dL (7-18) Creatinine 1.2 MG/DL (0.55-1.30) Estimat Glomerular Filtration Rate > 60 mL/min (>60) Glucose Level 197 MG/DL (74-106) H Hemoglobin A1c 8.0 % (4.3-6.0) H Calcium Level 9.3 MG/DL (8.5-10.1) Current Medications Medications (Trade) Dose Ordered Sig/Summer Route PRN Reason Start Time Stop Time Status Last Admin Dose Admin Acetaminophen (Tylenol) 650 mg Q4H PRN ORAL fever 12/20/17 14:00 01/19/18 13:59 12/22/17 21:18 Al Hydroxide/Mg Hydroxide (Mylanta II) 30 ml Q6H PRN ORAL dyspepsia 12/20/17 14:00 01/19/18 13:59 Amlodipine Besylate (Norvasc) 10 mg DAILY ORAL 12/22/17 11:30 01/21/18 11:29 12/23/17 09:17 Aspirin (ASA) 81 mg DAILY NG 12/22/17 09:00 01/21/18 08:59 12/23/17 09:17 Atorvastatin Calcium (Lipitor) 20 mg BEDTIME ORAL 12/21/17 21:00 01/20/18 20:59 12/22/17 20:31 Clonidine HCl (Catapres Tab) 0.1 mg Q6H PRN ORAL For High Blood Pressure 12/20/17 16:00 01/19/18 15:59 12/20/17 16:26 Dextrose (Dextrose 50%) STAT PRN IV Hypoglycemia 12/20/17 13:45 01/19/18 13:44 Dextrose (Dextrose 50%) 25 ml STAT PRN IV Hypoglycemia 12/20/17 14:00 01/19/18 13:59 Heparin Sodium (Porcine) (Heparin 5000 units/ml) 5,000 units EVERY 12 HOURS SUBQ 12/20/17 21:00 01/19/18 20:59 12/23/17 09:19 Insulin Aspart (NovoLOG) BEFORE MEALS AND HS SUBQ 12/20/17 16:30 01/19/18 16:29 12/23/17 06:01 Insulin Detemir (Levemir) 20 units DAILY SUBQ 7/29/18 10:15 01/21/18 10:14 12/23/17 11:18 Lisinopril (Prinivil) 40 mg DAILY ORAL 12/22/17 09:00 01/21/18 08:59 12/23/17 09:18 Lorazepam (Ativan 2mg/ml 1ml) 0.5 mg Q4H PRN IV For Anxiety 12/20/17 14:00 12/27/17 13:59 Morphine Sulfate (Morphine Sulfate) 1 mg Q4H PRN IVP For Pain 12/20/17 14:00 12/27/17 13:59 12/21/17 00:29 Ondansetron HCl (Zofran) 4 mg Q6H PRN IVP Nausea & Vomiting 12/20/17 14:00 01/19/18 13:59 Polyethylene Glycol (Miralax) 17 gm HSPRN PRN ORAL Constipation 12/20/17 21:00 01/19/18 20:59 Zolpidem Tartrate (Ambien) 5 mg HSPRN PRN ORAL Insomnia 12/20/17 21:00 12/27/17 20:59 Don Wagner MD Dec 23, 2017 11:45
[2017-12-23 12:19] VITALS: BP 141/76
--- NOTE | 2017-12-23 14:24 | Cardiology Report ---
APPROVED REPORT EXAM: Two-dimensional and M-mode echocardiogram with Doppler and color Doppler. INDICATION LV FUNCTION M-Mode DIMENSIONS IVSd1.3 (0.7-1.1cm) LVDd5.6 (3.5-5.6cm) PWd1.7 (0.7-1.1cm) IVSs1.8 cm LVDs3.5 (2.5-4.0cm) PWs2.4 cm Normal left ventricular chamber size, systolic function and wall motion to extent visualized. Left ventricular ejection fraction is grossly normal. No evidence pericardial effusion. All other cardiac chamber sizes are within normal limits. Valvauar study are not completed. Subcostal views are not obtained . A color flow and spectral Doppler study was not performed . Mitral diastolic velocities suggest reduced left ventricular relaxation c/w mild LV diastolic dysfunction (Grade I ). Trace mitral regurgitation. Tricuspid systolic velocities suggests peak right ventricular systolic pressure of25 mmHg,
[2017-12-23 15:58] VITALS: BP 155/92
--- NOTE | 2017-12-23 16:41 | General Progress Note ---
Assessment/Plan Assessment/Plan Assessment - diarrhea, appears to have resolved - morbid obesity - mild anemia Recommendations - po as tolerated - follow up symptoms - outpt f/u Subjective Allergies: Coded Allergies: No Known Allergies (Unverified , 12/20/17) Subjective Feels OK no diarrhea tolerating PO no nausea Stool OB (-) Objective Last 24 Hour Vital Signs Date Time Temp Pulse Resp B/P (MAP) Pulse Ox O2 Delivery O2 Flow Rate FiO2 12/23/17 15:58 97.8 83 20 155/92 (113) 100 97.8 12/23/17 12:19 97.3 83 20 141/76 (97) 98 97.3 12/23/17 09:18 148/78 12/23/17 09:17 90 148/78 12/23/17 09:12 90 148/78 (101) 12/23/17 09:00 Room Air 12/23/17 08:21 97.7 85 20 138/61 (86) 98 97.7 12/23/17 04:00 98.1 82 20 142/79 (100) 97 98.1 12/23/17 00:00 85 18 96 12/22/17 21:00 Room Air 12/22/17 20:00 98.5 80 19 151/80 (103) 96 98.5 Intake and Output 12/22/17 12/23/17 19:00 07:00 Intake Total 590 ml 617.5 ml Balance 590 ml 617.5 ml Intake Oral 480 ml 480 ml IV Total 110 ml 137.5 ml # Voids 3 2 # Bowel Movements 1 Laboratory Tests 12/22/17 23:00: Urine Color Pale yellow, Urine Appearance Clear, Urine pH 6.5, Urine Specific [place] 1.010, Urine Protein Negative, Urine Glucose (UA) Negative, Urine Ketones Negative, Urine Occult Blood Negative, Urine Nitrite Negative, Urine Bilirubin Negative, Urine Urobilinogen Normal, Urine Leukocyte Esterase 3+H, Urine RBC 0-2H, Urine WBC 10-15H, Urine Squamous Epithelial Cells Occasional, Urine Bacteria Few 12/23/17 04:55: White Blood Count 6.3, Red Blood Count 4.36L, Hemoglobin 11.5L, Hematocrit 37.1L , Mean Corpuscular Volume 85, Mean Corpuscular Hemoglobin 26.4L, Mean Corpuscular Hemoglobin Concent 31.0L, Red Cell Distribution Width 13.9, Platelet Count 189, Mean Platelet Volume 7.4, Neutrophils (%) (Auto) 65.4, Lymphocytes (%) (Auto) 23.0, Monocytes (%) (Auto) 7.7, Eosinophils (%) (Auto) 3.3H, Basophils (%) (Auto) 0.5, Sodium Level 139, Potassium Level 4.4, Chloride Level 104, Carbon Dioxide Level 30, Anion Gap 5, Blood Urea Nitrogen 13, Creatinine 1.2, Estimat Glomerular Filtration Rate > 60, Glucose Level 197H, Hemoglobin A1c 8.0H, Calcium Level 9.3 Height (Feet): 5 Height (Inches): 10.00 Weight (Pounds): 450 Objective NCAT supple CTA RRR abd central obesity, old surgical scars (+) edema Elver Becker MD Dec 23, 2017 16:41
--- NOTE | 2017-12-23 17:44 | General Progress Note ---
Assessment/Plan Status: stable Assessment/Plan INTERNAL MEDICINE PROGRESS NOTE Covering for Dr. Diane # Anemia --> Currently stable. No w/u required. Hgb above 11 Continue to closely monitor. # DM. A1C goal <7 --> Closely monitor BS. # COPD # CHF # HTN # Morbid obesity Subjective Date patient seen: Dec 23, 2017 ROS Limited/Unobtainable: Yes Hematologic/Lymphatic: Reports: anemia Allergies: Coded Allergies: No Known Allergies (Unverified , 12/20/17) All Systems: reviewed and negative except above Subjective Pt awake and alert. No acute events. No diarrhea, stool OB negative. DC planning. Objective Last 24 Hour Vital Signs Date Time Temp Pulse Resp B/P (MAP) Pulse Ox O2 Delivery O2 Flow Rate FiO2 12/23/17 15:58 97.8 83 20 155/92 (113) 100 97.8 12/23/17 12:19 97.3 83 20 141/76 (97) 98 97.3 12/23/17 09:18 148/78 12/23/17 09:17 90 148/78 12/23/17 09:12 90 148/78 (101) 12/23/17 09:00 Room Air 12/23/17 08:21 97.7 85 20 138/61 (86) 98 97.7 12/23/17 04:00 98.1 82 20 142/79 (100) 97 98.1 12/23/17 00:00 85 18 96 12/22/17 21:00 Room Air 12/22/17 20:00 98.5 80 19 151/80 (103) 96 98.5 Intake and Output 12/22/17 12/23/17 19:00 07:00 Intake Total 590 ml 617.5 ml Balance 590 ml 617.5 ml Intake Oral 480 ml 480 ml IV Total 110 ml 137.5 ml # Voids 3 2 # Bowel Movements 1 Laboratory Tests 12/22/17 23:00: Urine Color Pale yellow, Urine Appearance Clear, Urine pH 6.5, Urine Specific [place] 1.010, Urine Protein Negative, Urine Glucose (UA) Negative, Urine Ketones Negative, Urine Occult Blood Negative, Urine Nitrite Negative, Urine Bilirubin Negative, Urine Urobilinogen Normal, Urine Leukocyte Esterase 3+H, Urine RBC 0-2H, Urine WBC 10-15H, Urine Squamous Epithelial Cells Occasional, Urine Bacteria Few 12/23/17 04:55: White Blood Count 6.3, Red Blood Count 4.36L, Hemoglobin 11.5L, Hematocrit 37.1L , Mean Corpuscular Volume 85, Mean Corpuscular Hemoglobin 26.4L, Mean Corpuscular Hemoglobin Concent 31.0L, Red Cell Distribution Width 13.9, Platelet Count 189, Mean Platelet Volume 7.4, Neutrophils (%) (Auto) 65.4, Lymphocytes (%) (Auto) 23.0, Monocytes (%) (Auto) 7.7, Eosinophils (%) (Auto) 3.3H, Basophils (%) (Auto) 0.5, Sodium Level 139, Potassium Level 4.4, Chloride Level 104, Carbon Dioxide Level 30, Anion Gap 5, Blood Urea Nitrogen 13, Creatinine 1.2, Estimat Glomerular Filtration Rate > 60, Glucose Level 197H, Hemoglobin A1c 8.0H, Calcium Level 9.3 Height (Feet): 5 Height (Inches): 10.00 Weight (Pounds): 450 General Appearance: no apparent distress, alert EENT: PERRL/EOMI Neck: normal alignment Cardiovascular: normal peripheral pulses, irregularly irregular Respiratory/Chest: no respiratory distress Abdomen: soft Dino Corbin MD Dec 23, 2017 17:44
--- NOTE | 2017-12-23 18:02 | Cardiology Progress Note ---
Assessment/Plan Status: stable Assessment/Plan Assessment (1) Morbidly obese (2) Electrolyte imbalance (3) Diarrhea (4) Anemia (5) Constipation (6) CHF (7) Obesity (8) Diabetes (9) COPD (10) Hypertension Plan Iron supplementation B12 supplementation Weight loss Ambulate Statin Aspirin Echocardiogram to evaluate LV function stool studies Physical therapy BP control - lisinopril 40 mg daily, add 10 mg norvasc Dispo planning Subjective Cardiovascular: Reports: no symptoms Respiratory: Reports: no symptoms Genitourinary: Reports: no symptoms Subjective No acute events, MRSA nares positive. NO complaints. Vitals stable, BP high, patient comfortable Objective Last 24 Hour Vital Signs Date Time Temp Pulse Resp B/P (MAP) Pulse Ox O2 Delivery O2 Flow Rate FiO2 12/23/17 15:58 97.8 83 20 155/92 (113) 100 97.8 12/23/17 12:19 97.3 83 20 141/76 (97) 98 97.3 12/23/17 09:18 148/78 12/23/17 09:17 90 148/78 12/23/17 09:12 90 148/78 (101) 12/23/17 09:00 Room Air 12/23/17 08:21 97.7 85 20 138/61 (86) 98 97.7 12/23/17 04:00 98.1 82 20 142/79 (100) 97 98.1 12/23/17 00:00 85 18 96 12/22/17 21:00 Room Air 12/22/17 20:00 98.5 80 19 151/80 (103) 96 98.5 General Appearance: no apparent distress EENT: PERRL/EOMI, normal ENT inspection Neck: non-tender, supple Rhythm: NSR Cardiovascular: normal peripheral pulses, normal rate Respiratory/Chest: chest wall non-tender, lungs clear Abdomen: normal bowel sounds, non tender Extremities: non-tender 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 Intake and Output 12/22/17 12/23/17 19:00 07:00 Intake Total 590 ml 617.5 ml Balance 590 ml 617.5 ml Intake Oral 480 ml 480 ml IV Total 110 ml 137.5 ml # Voids 3 2 # Bowel Movements 1 Laboratory Tests Test 12/22/17 23:00 12/23/17 04:55 Urine Color Pale yellow Urine Appearance Clear Urine pH 6.5 (4.5-8.0) Urine Specific [place] 1.010 (1.005-1.035) Urine Protein Negative (NEGATIVE) Urine Glucose (UA) Negative (NEGATIVE) Urine Ketones Negative (NEGATIVE) Urine Occult Blood Negative (NEGATIVE) Urine Nitrite Negative (NEGATIVE) Urine Bilirubin Negative (NEGATIVE) Urine Urobilinogen Normal MG/DL (0.0-1.0) Urine Leukocyte Esterase 3+ (NEGATIVE) H Urine RBC 0-2 /HPF (0 - 0) H Urine WBC 10-15 /HPF (0 - 0) H Urine Squamous Epithelial Cells Occasional /LPF Urine Bacteria Few /HPF (NONE) White Blood Count 6.3 K/UL (4.8-10.8) Red Blood Count 4.36 M/UL (4.70-6.10) L Hemoglobin 11.5 G/DL (14.2-18.0) L Hematocrit 37.1 % (42.0-52.0) L Mean Corpuscular Volume 85 FL (80-99) Mean Corpuscular Hemoglobin 26.4 PG (27.0-31.0) L Mean Corpuscular Hemoglobin Concent 31.0 G/DL (32.0-36.0) L Red Cell Distribution Width 13.9 % (11.6-14.8) Platelet Count 189 K/UL (150-450) Mean Platelet Volume 7.4 FL (6.5-10.1) Neutrophils (%) (Auto) 65.4 % (45.0-75.0) Lymphocytes (%) (Auto) 23.0 % (20.0-45.0) Monocytes (%) (Auto) 7.7 % (1.0-10.0) Eosinophils (%) (Auto) 3.3 % (0.0-3.0) H Basophils (%) (Auto) 0.5 % (0.0-2.0) Sodium Level 139 MMOL/L (136-145) Potassium Level 4.4 MMOL/L (3.5-5.1) Chloride Level 104 MMOL/L (98-107) Carbon Dioxide Level 30 MMOL/L (21-32) Anion Gap 5 mmol/L (5-15) Blood Urea Nitrogen 13 mg/dL (7-18) Creatinine 1.2 MG/DL (0.55-1.30) Estimat Glomerular Filtration Rate > 60 mL/min (>60) Glucose Level 197 MG/DL (74-106) H Hemoglobin A1c 8.0 % (4.3-6.0) H Calcium Level 9.3 MG/DL (8.5-10.1) Microbiology Date/Time Source Procedure Growth Status 12/21/17 14:30 Stool Clostridium difficile Toxin Assay - Final Complete 12/22/17 23:00 Urine,Clean Catch Urine Culture - Preliminary NO GROWTH Resulted Christiano Gtz M.D. Dec 23, 2017 18:02
[2017-12-23 20:40] VITALS: BP 146/64
[2017-12-23] MEDS ORDERED: Tamsulosin 0.4mg cap ORAL SCH (21:00)
[2017-12-23] MEDS: Atorvastatin 20mg tab ORAL SCH (21:27)
[2017-12-24 00:09] VITALS: BP 122/63
[2017-12-24 04:00] VITALS: BP 112/67
[2017-12-24] MEDS: NovoLOG Insulin Flexpen SUBQ SCH ×2 (06:11→12:09)
[2017-12-24 07:45] LABS: BASOPHILS % (AUTO) 0.8 % (0.0-2.0); EOSINOPHILS % (AUTO) 2.9 % (0.0-3.0); HEMATOCRIT 35.4 % (42.0-52.0); LYMPHOCYTES % (AUTO) 20.7 % (20.0-45.0); MEAN CORPUSCULAR VOLUME 85 FL (80-99); MONOCYTES % (AUTO) 7.9 % (1.0-10.0); NEUTROPHILS % (AUTO) 67.6 % (45.0-75.0); PLATELET COUNT 182 K/UL (150-450); RED BLOOD COUNT 4.15 M/UL (4.70-6.10); RED CELL DISTRIBUTION WIDTH 13.7 % (11.6-14.8); WHITE BLOOD COUNT 5.6 K/UL (4.8-10.8)
[2017-12-24 08:00] VITALS: BP 140/68
[2017-12-24 08:18] LABS: ANION GAP 7 mmol/L (5-15); BLOOD UREA NITROGEN 14 mg/dL (7-18); CALCIUM 8.8 MG/DL (8.5-10.1); CARBON DIOXIDE 27 MMOL/L (21-32); CHLORIDE 105 MMOL/L (98-107); CREATININE 1.2 MG/DL (0.55-1.30); POTASSIUM 4.2 MMOL/L (3.5-5.1); SODIUM 139 MMOL/L (136-145)
[2017-12-24] MEDS: Aspirin Baby 81mg NG SCH (08:25)
[2017-12-24] MEDS: Lisinopril 20mg tab ORAL SCH (08:30)
[2017-12-24] MEDS: Heparin 5000 units/ml inj SUBQ SCH (08:32)
[2017-12-24] MEDS: Levemir Flexpen SUBQ SCH (08:32)
[2017-12-24] MEDS ORDERED: AMLODIPINE BESY10 MG ORAL (10:55)
[2017-12-24] MEDS ORDERED: ASPIR 8181 MG ORAL (10:55)
[2017-12-24] MEDS ORDERED: LIPITOR80 MG ORAL (10:56)
[2017-12-24] MEDS ORDERED: LISINOPRIL20 MG ORAL (10:57)
[2017-12-24] MEDS ORDERED: TAMSULOSIN HCL0.4 MG ORAL (10:58)
--- NOTE | 2017-12-24 11:26 | GI Progress Note ---
Assessment/Plan Problems: (1) Morbidly obese ICD Codes: E66.01 - Morbid (severe) obesity due to excess calories SNOMED: 303550617 (2) Electrolyte imbalance ICD Codes: E87.8 - Other disorders of electrolyte and fluid balance, not elsewhere classified SNOMED: 812559265 (3) Diarrhea ICD Codes: R19.7 - Diarrhea, unspecified SNOMED: 31544288 (4) Anemia ICD Codes: D64.9 - Anemia, unspecified SNOMED: 663509520 (5) Constipation ICD Codes: K59.00 - Constipation, unspecified SNOMED: 36656985 Status: stable Status Narrative Discussed with Dr. Vanegas. Assessment/Plan had formed stool >> start bowel regime OB stool negative kub reviewed okay for DC per GI standpoint ADA diet anemia work up monitor H&H, prn transfusions bowel regime ppi fu labs outpatient GI procedures The patient was seen and examined at bedside and all new and available data was reviewed in the patients chart. I agree with the above findings, impression and plan. (Patient seen earlier today. Signature stamp does not reflect patient encounter time.). - Pierce Vanegas MD Subjective Gastrointestinal/Abdominal: Reports: no symptoms Subjective ready for discharge Objective Last 24 Hour Vital Signs Date Time Temp Pulse Resp B/P (MAP) Pulse Ox O2 Delivery O2 Flow Rate FiO2 12/24/17 09:00 Room Air 12/24/17 08:30 140/68 12/24/17 08:29 96 140/68 12/24/17 08:00 98.2 96 20 140/68 (92) 100 98.2 12/24/17 04:00 99.0 91 16 112/67 (82) 93 99.0 12/24/17 00:09 97.9 84 20 122/63 (82) 96 97.9 12/23/17 21:00 Room Air 12/23/17 20:40 97.7 74 20 146/64 (91) 98 97.7 12/23/17 15:58 97.8 83 20 155/92 (113) 100 97.8 12/23/17 12:19 97.3 83 20 141/76 (97) 98 97.3 Intake and Output 12/23/17 12/24/17 19:00 07:00 Intake Total 840 ml Balance 840 ml Intake Oral 840 ml # Voids 3 4 # Bowel Movements 1 Laboratory Tests Test 12/24/17 06:50 White Blood Count 5.6 K/UL (4.8-10.8) Red Blood Count 4.15 M/UL (4.70-6.10) L Hemoglobin 11.0 G/DL (14.2-18.0) L Hematocrit 35.4 % (42.0-52.0) L Mean Corpuscular Volume 85 FL (80-99) Mean Corpuscular Hemoglobin 26.4 PG (27.0-31.0) L Mean Corpuscular Hemoglobin Concent 31.0 G/DL (32.0-36.0) L Red Cell Distribution Width 13.7 % (11.6-14.8) Platelet Count 182 K/UL (150-450) Mean Platelet Volume 6.9 FL (6.5-10.1) Neutrophils (%) (Auto) 67.6 % (45.0-75.0) Lymphocytes (%) (Auto) 20.7 % (20.0-45.0) Monocytes (%) (Auto) 7.9 % (1.0-10.0) Eosinophils (%) (Auto) 2.9 % (0.0-3.0) Basophils (%) (Auto) 0.8 % (0.0-2.0) Sodium Level 139 MMOL/L (136-145) Potassium Level 4.2 MMOL/L (3.5-5.1) Chloride Level 105 MMOL/L (98-107) Carbon Dioxide Level 27 MMOL/L (21-32) Anion Gap 7 mmol/L (5-15) Blood Urea Nitrogen 14 mg/dL (7-18) Creatinine 1.2 MG/DL (0.55-1.30) Estimat Glomerular Filtration Rate > 60 mL/min (>60) Glucose Level 278 MG/DL (74-106) H Calcium Level 8.8 MG/DL (8.5-10.1) Height (Feet): 5 Height (Inches): 10.00 Weight (Pounds): 450 General Appearance: WD/WN, no apparent distress, alert, morbidly obese Cardiovascular: normal rate Respiratory/Chest: normal breath sounds, no respiratory distress Abdominal Exam: normal bowel sounds, non tender, soft Extremities: normal range of motion, non-tender Kasper,EvelyneHilaria PURCELL Dec 24, 2017 11:26
[2017-12-24 12:00] VITALS: BP 138/59
[2017-12-24] MEDS ORDERED: NOVOLOG100 UNIT/3 SUBQ (12:22)
[2017-12-24] MEDS ORDERED: LEVEMIR FL100 UNIT/1 SUBQ (12:22)
--- NOTE | 2017-12-24 14:47 | General Progress Note ---
Assessment/Plan Status: stable Assessment/Plan INTERNAL MEDICINE PROGRESS NOTE Covering for Dr. Diane # Anemia --> Currently stable. No w/u required. Hgb above 11 Continue to closely monitor. # DM. A1C goal <7 --> Closely monitor BS. # COPD # CHF # HTN # Morbid obesity Subjective Date patient seen: Dec 24, 2017 Time patient seen: 07:00 ROS Limited/Unobtainable: Yes Hematologic/Lymphatic: Reports: anemia Allergies: Coded Allergies: No Known Allergies (Unverified , 12/20/17) All Systems: reviewed and negative except above Subjective Pt is stable and medically cleared for DC. No acute distress. Objective Last 24 Hour Vital Signs Date Time Temp Pulse Resp B/P (MAP) Pulse Ox O2 Delivery O2 Flow Rate FiO2 12/24/17 12:00 97.5 101 20 138/59 (85) 100 97.5 12/24/17 09:00 Room Air 12/24/17 08:30 140/68 12/24/17 08:29 96 140/68 12/24/17 08:00 98.2 96 20 140/68 (92) 100 98.2 12/24/17 04:00 99.0 91 16 112/67 (82) 93 99.0 12/24/17 00:09 97.9 84 20 122/63 (82) 96 97.9 12/23/17 21:00 Room Air 12/23/17 20:40 97.7 74 20 146/64 (91) 98 97.7 12/23/17 15:58 97.8 83 20 155/92 (113) 100 97.8 Intake and Output 12/23/17 12/24/17 19:00 07:00 Intake Total 840 ml Balance 840 ml Intake Oral 840 ml # Voids 3 4 # Bowel Movements 1 Laboratory Tests 12/24/17 06:50: White Blood Count 5.6, Red Blood Count 4.15L, Hemoglobin 11.0L, Hematocrit 35.4L , Mean Corpuscular Volume 85, Mean Corpuscular Hemoglobin 26.4L, Mean Corpuscular Hemoglobin Concent 31.0L, Red Cell Distribution Width 13.7, Platelet Count 182, Mean Platelet Volume 6.9, Neutrophils (%) (Auto) 67.6, Lymphocytes (%) (Auto) 20.7, Monocytes (%) (Auto) 7.9, Eosinophils (%) (Auto) 2.9, Basophils (%) (Auto) 0.8, Sodium Level 139, Potassium Level 4.2, Chloride Level 105, Carbon Dioxide Level 27, Anion Gap 7, Blood Urea Nitrogen 14, Creatinine 1.2, Estimat Glomerular Filtration Rate > 60, Glucose Level 278H, Calcium Level 8.8 Height (Feet): 5 Height (Inches): 10.00 Weight (Pounds): 450 General Appearance: no apparent distress, alert EENT: PERRL/EOMI Neck: normal alignment, supple Cardiovascular: normal peripheral pulses Respiratory/Chest: normal breath sounds, no respiratory distress Abdomen: soft Dino Corbin MD Dec 24, 2017 14:47
--- NOTE | 2017-12-24 15:16 | Diagnostic Imaging Report ---
Indication: Abdominal pain Technique: Supine view of the abdomen Comparison: none Findings: Unremarkable bowel gas pattern. No gaseous distention of large or small bowel. No unusual masses or calcifications. Degenerative proliferative changes of the lumbar spine noted. Impression: No acute process
--- NOTE | 2017-12-24 23:22 | Consultation ---
History of Present Illness General Date patient seen: Dec 23, 2017 Chief Complaint: General Complaint Referring physician: HILARIO BAJWA Reason for Consultation: DEJA Present Illness HPI 72-year-old male, who lives in [facility], complains of diarrhea for three weeks. the pt has hx of depression and pw low energy and depressed mood Allergies: Coded Allergies: No Known Allergies (Unverified , 12/20/17) Medication History Scheduled Amlodipine Besylate* (Amlodipine Besylate*), 10 MG ORAL DAILY, (Reported) Aspirin* (Aspir 81*), 81 MG ORAL DAILY, (Reported) Atorvastatin (Lipitor), 20 MG ORAL BEDTIME, (Reported) Insulin Aspart* (Novolog*), 0 SUBQ ACBREAKFAST, (Reported) Insulin Detemir (Levemir Flexpen), 20 SUBQ DAILY, (Reported) Lisinopril (Lisinopril*), 40 MG ORAL DAILY, (Reported) Lisinopril (Lisinopril*), 40 MG ORAL DAILY, (Reported) Tamsulosin Hcl (Tamsulosin Hcl*), 0.4 MG ORAL BEDTIME, (Reported) Miscellaneous Medications Unable to Obtain Medications (Unable To Obtain Meds), (Reported) Patient History Limited by: medical condition History Provided By: Patient, PMD Healthcare decision maker Resuscitation status Full Code Advanced Directive on File No Past Medical/Surgical History Past Medical/Surgical History: (1) Constipation (2) Anemia (3) Electrolyte imbalance (4) Morbidly obese (5) COPD (chronic obstructive pulmonary disease) (6) Diabetes (7) CHF (congestive heart failure) (8) HTN (hypertension) Review of Systems Psychiatric: Reports: prior hx, anxiety, depressed feelings Physical Exam General Appearance: no apparent distress, alert, obese Neurologic: responsive, depressed affect Last 24 Hour Vital Signs Date Time Temp Pulse Resp B/P (MAP) Pulse Ox O2 Delivery O2 Flow Rate FiO2 12/24/17 12:00 97.5 101 20 138/59 (85) 100 97.5 12/24/17 09:00 Room Air 12/24/17 08:30 140/68 12/24/17 08:29 96 140/68 12/24/17 08:00 98.2 96 20 140/68 (92) 100 98.2 12/24/17 04:00 99.0 91 16 112/67 (82) 93 99.0 12/24/17 00:09 97.9 84 20 122/63 (82) 96 97.9 Intake and Output 12/23/17 12/24/17 19:00 07:00 Intake Total 840 ml Balance 840 ml Intake Oral 840 ml # Voids 3 4 # Bowel Movements 1 Laboratory Tests Test 12/24/17 06:50 White Blood Count 5.6 K/UL (4.8-10.8) Red Blood Count 4.15 M/UL (4.70-6.10) L Hemoglobin 11.0 G/DL (14.2-18.0) L Hematocrit 35.4 % (42.0-52.0) L Mean Corpuscular Volume 85 FL (80-99) Mean Corpuscular Hemoglobin 26.4 PG (27.0-31.0) L Mean Corpuscular Hemoglobin Concent 31.0 G/DL (32.0-36.0) L Red Cell Distribution Width 13.7 % (11.6-14.8) Platelet Count 182 K/UL (150-450) Mean Platelet Volume 6.9 FL (6.5-10.1) Neutrophils (%) (Auto) 67.6 % (45.0-75.0) Lymphocytes (%) (Auto) 20.7 % (20.0-45.0) Monocytes (%) (Auto) 7.9 % (1.0-10.0) Eosinophils (%) (Auto) 2.9 % (0.0-3.0) Basophils (%) (Auto) 0.8 % (0.0-2.0) Sodium Level 139 MMOL/L (136-145) Potassium Level 4.2 MMOL/L (3.5-5.1) Chloride Level 105 MMOL/L (98-107) Carbon Dioxide Level 27 MMOL/L (21-32) Anion Gap 7 mmol/L (5-15) Blood Urea Nitrogen 14 mg/dL (7-18) Creatinine 1.2 MG/DL (0.55-1.30) Estimat Glomerular Filtration Rate > 60 mL/min (>60) Glucose Level 278 MG/DL (74-106) H Calcium Level 8.8 MG/DL (8.5-10.1) Height (Feet): 5 Height (Inches): 10.00 Weight (Pounds): 450 Assessment/Plan Assessment/Plan mdd anxiety damonivan Shari Good MD Dec 24, 2017 23:22
--- NOTE | 2017-12-24 23:22 | General Progress Note ---
Assessment/Plan Assessment/Plan mdd anxiety ativan prn Subjective Date patient seen: Dec 24, 2017 Neurologic/Psychiatric: Reports: anxiety, depressed, emotional problems Allergies: Coded Allergies: No Known Allergies (Unverified , 12/20/17) Objective Last 24 Hour Vital Signs Date Time Temp Pulse Resp B/P (MAP) Pulse Ox O2 Delivery O2 Flow Rate FiO2 12/24/17 12:00 97.5 101 20 138/59 (85) 100 97.5 12/24/17 09:00 Room Air 12/24/17 08:30 140/68 12/24/17 08:29 96 140/68 12/24/17 08:00 98.2 96 20 140/68 (92) 100 98.2 12/24/17 04:00 99.0 91 16 112/67 (82) 93 99.0 12/24/17 00:09 97.9 84 20 122/63 (82) 96 97.9 Intake and Output 12/23/17 12/24/17 19:00 07:00 Intake Total 840 ml Balance 840 ml Intake Oral 840 ml # Voids 3 4 # Bowel Movements 1 Laboratory Tests 12/24/17 06:50: White Blood Count 5.6, Red Blood Count 4.15L, Hemoglobin 11.0L, Hematocrit 35.4L , Mean Corpuscular Volume 85, Mean Corpuscular Hemoglobin 26.4L, Mean Corpuscular Hemoglobin Concent 31.0L, Red Cell Distribution Width 13.7, Platelet Count 182, Mean Platelet Volume 6.9, Neutrophils (%) (Auto) 67.6, Lymphocytes (%) (Auto) 20.7, Monocytes (%) (Auto) 7.9, Eosinophils (%) (Auto) 2.9, Basophils (%) (Auto) 0.8, Sodium Level 139, Potassium Level 4.2, Chloride Level 105, Carbon Dioxide Level 27, Anion Gap 7, Blood Urea Nitrogen 14, Creatinine 1.2, Estimat Glomerular Filtration Rate > 60, Glucose Level 278H, Calcium Level 8.8 Height (Feet): 5 Height (Inches): 10.00 Weight (Pounds): 450 General Appearance: no apparent distress, alert Neurologic: oriented x 3, responsive, depressed affect Shari Diego MD Dec 24, 2017 23:22
--- NOTE | 2017-12-26 11:54 | Discharge Summary ---
Discharge Summary Discharge Summary _ DATE OF ADMISSION: 12/20/2017 DATE OF DISCHARGE: 12/24/2017 REASON FOR ADMISSION: 72 years old male with past medical history of hypertension, diabetes, congestive heart failure, COPD, morbidly obesity, presented with diarrhea. He denied abdominal pain, nausea, vomiting. No bright red blood in the stools, no black tarry stools. Upon evaluation blood pressure 180/83, patient was afebrile. No leukocytosis ,mild anemia with hemoglobin 12.6 hematocrit 41.3. Glucose 301 Troponin negative, pro BNP 278 . Chest x-ray revealed no acute cardiopulmonary pathology. Patient admitted with diarrhea, COPD, CHF, anemia ,hypertension, diabetes mellitus, CONSULTANTS: sensitizer Dr. Gtz pulmonary Dr. Swanson ID specialist Dr. Ring GI specialist psychiatrist [facility]: Patient admitted. Stool studies were ordered. Stool for C. difficile was negative. Stool culture was negative. Stool for ova and parasite 1 was negative. Patient was afebrile, no leukocytosis, possible gastroenteritis. GI specialist closely followed . Symptomatic treatment provided Diarrhea resolved. Outpatient GI procedure recommended.m Anemia workup was consistent with anemia of chronic disease and B12 deficiency anemia. Patient received the 1 dose of B12 at the hospital and then to be continued monthly with periodic check of B12 level. Stool for occult block was negative, and CEA was within normal limits. Patient was on PPI. Hemoglobin and hematocrit were closely monitored with goal to keep hemoglobin above 7 ; hemoglobin and hematocrit remained stable. Blood pressure was managed with calcium channel tati and ian inhibitor. DVT prophylaxis provided. Blood sugar was managed with sliding scale of insulin and Levemir . Dose of Levemir was increased. Hemoglobin A1c 8.0 . not at goal. Patient will need close monitoring of blood sugar as outpatient and further optimization of antiglycemic regimen to bring blood sugar under control. Supplemental oxygen provided as needed to keep pulse oximetry above 92% . Pulmonary toilet was on standby as needed . Chest x-ray, as mentioned above ,revealed no acute cardiopulmonary pathology. Pulse oximetry was stable on room air. Patient complained of dysuria . Urinalysis revealed pyuria +3, but only few bacteria. ID consult was requested , and patient was started on empiric antibiotic. Urine culture revealed Citrobacter with colony count 10-20 only. ID specialist recommended to keep patient off antibiotic and started patient on Flomax . Psychiatrist seen and evaluated patient, diagnosed patient with major depressive disorder. Patient clinically improved and was stable for discharge to board and care FINAL DIAGNOSES: Diarrhea Possible gastroenteritis COPD CHF Hypertension Diabetes mellitus out of control Morbid obesity Anemia of chronic disease B12 deficiency anemia Urinary incontinence Dysuria DISCHARGE MEDICATIONS: See Medication Reconciliation list. DISCHARGE INSTRUCTIONS: Patient was discharged to board and [facility]. Melinda Crespo NP Dec 26, 2017 11:54
== END 2017-12-24 12:25 | disposition home health service (06) | DRG 392 ==
LOC: EMR 11:20 → 4W 13:17 → EDBEDREQ 14:09
DX: K52.9 Noninfective gastroenteritis and colitis, unspecified (principal); Z68.44 Body mass index [BMI] 60.0-69.9, adult; R19.7 Diarrhea, unspecified; I11.0 Hypertensive heart disease with heart failure; J44.9 Chronic obstructive pulmonary disease, unspecified; I50.9 Heart failure, unspecified; E66.01 Morbid (severe) obesity due to excess calories; D64.9 Anemia, unspecified; E87.8 Other disorders of electrolyte and fluid balance, not elsewhere classified; G47.33 Obstructive sleep apnea (adult) (pediatric); Z87.891 Personal history of nicotine dependence; Z22.322 Carrier or suspected carrier of Methicillin resistant Staphylococcus aureus; F32.9 Major depressive disorder, single episode, unspecified; F41.9 Anxiety disorder, unspecified; E11.65 Type 2 diabetes mellitus with hyperglycemia; D63.8 Anemia in other chronic diseases classified elsewhere; D51.3 Other dietary vitamin B12 deficiency anemia; R32 Unspecified urinary incontinence; K59.00 Constipation, unspecified
CPT/HCPCS: 36415; 71045; 74018; 80048; 80053; 80061; 81001; 82270; 82378; 82607; 82728; 82746; 82962; 83036; 83540; 83550; 83880; 84439; 84443; 84484; 85025; 85044; 85610; 85730; 87045; 87081; 87086; 87181; 87324; 93005; 93306; 99285; J1815; S5561